=== PATIENT | female | born 1960 | race Caucasian/White ===

== ENCOUNTER 2018-04-18 14:46 | Emergency (ER) | payer BC ==
--- NOTE | 2018-04-18 16:13 | UC ---
Knee Pain HPI - HPI Summary HPI Summary: Patient states that she sees Dr. Rico for steroid injections of her right knee. She states that 5 days ago her son-in-law's dog ran into her right knee. She had instant pain. She presents today for ongoing pain and some mild swelling. Earlier today she felt like in the went "backwards" she was standing in her kitchen. - History of Current Complaint Stated Complaint: RIGHT KNEE Time Seen by Provider: 04/18/18 16:06 Hx Obtained From: Patient Onset/Duration: Sudden Onset Character: Aching Aggravating Factor(s): Movement Alleviating Factor(s): Rest Associated Signs And Symptoms: Positive: Swelling. Negative: Numbness, Tingling Able to Bear Weight: Yes - Risk Factors Septic Arthritis Risk Factor: Negative - Allergies/Home Medications Allergies/Adverse Reactions: Allergies Allergy/AdvReac Type Severity Reaction Status Date / Time amoxicillin [From Augmentin] Allergy Intermediate Rash Verified 04/18/18 16:26 clavulanic acid Allergy Intermediate Rash Verified 04/18/18 16:26 [From Augmentin] Penicillins Allergy Intermediate Rash Verified 04/18/18 16:26 clindamycin AdvReac shaking Verified 04/18/18 16:26 meloxicam AdvReac Itching Verified 04/18/18 16:26 metronidazole [From Flagyl] AdvReac GI Verified 04/18/18 16:26 oxycodone AdvReac severe Verified 04/18/18 16:26 sweating Sulfa (Sulfonamide AdvReac Diarrhea Verified 04/18/18 16:26 Antibiotics) Home Medications: Home Medications Fenofibrate,Micronized [Fenofibrate] 134 mg PO DAILY 04/18/18 [History Confirmed 04/18/18] PMH/Surg Hx/FS Hx/Imm Hx - Additional Past Medical History Additional PMH: Fibromyalgia Endocrine History: Dyslipidemia Cardiovascular History: Hypertension - Surgical History Surgical History: Yes Surgery Procedure, Year, and Place: [facility]-2012. RIGHT THUMB ARTHROPLASTY - Family History Known Family History: Positive: None - Social History Occupation: Works From/At Home - cares for grandchildren Lives: With Family Alcohol Use: Rare Substance Use Type: None Smoking Status (MU): Heavy Every Day Tobacco Smoker Type: Cigarettes Amount Used/How Often: 1/2 PPD Length of Time of Smoking/Using Tobacco: 15 YRS Have You Smoked in the Last Year: Yes - Immunization History Vaccination Up to Date: Yes Review of Systems Constitutional: Negative Skin: Negative Eyes: Negative ENT: Negative Respiratory: Negative Cardiovascular: Negative Gastrointestinal: Negative Genitourinary: Negative Motor: Negative Neurovascular: Negative Musculoskeletal: Other: - R knee pain/swelling Neurological: Negative Psychological: Negative Is Patient Immunocompromised?: No All Other Systems Reviewed And Are Negative: Yes Physical Exam Triage Information Reviewed: Yes Appearance: Well-Appearing Vital Signs Reviewed: Yes Eyes: Positive: Conjunctiva Clear ENT: Positive: Normal ENT inspection Neck: Positive: Supple, Nontender, No Lymphadenopathy Respiratory: Positive: Lungs clear, Normal breath sounds Cardiovascular: Positive: RRR, No Murmur Abdomen Description: Positive: Nontender, No Organomegaly, Soft Bowel Sounds: Positive: Present Musculoskeletal: Positive: Other: - Right lower extremity exam= hip ankle and foot are atraumatic. Right knee when compared to the left is slightly swollen. There is some mild tenderness to palpation along the medial knee. No stress with lateral tension on the patella. No gross laxity on valgus varus anterior posterior stressing. The extremity has gross sensorivascular motor function. Neurological: Positive: Alert Psychological: Positive: Age Appropriate Behavior Skin Exam: Normal Diagnostics - Radiology No standard instances Xray Interpretation: No Acute Changes Radiology Interpretation Completed By: Radiologist Knee Pain Course/Dx - Course Course Of Treatment: no joint laxity. no concern for infection. no fx on xray. will desmond, crutch and refer to her orthopedist. - Differential Dx/Diagnosis Provider Diagnoses: Acute R knee pain Discharge - Sign-Out/Discharge Documenting (check all that apply): Discharge/Admit/Transfer - Discharge Plan Condition: Stable Disposition: HOME Patient Education Materials: Knee Pain (ED), Swollen Knee Joint (ED) Referrals: Norman Noriega DO [Primary Care Provider] - If Needed Ulises Rico MD [Medical Doctor] - As Soon As Possible Additional Instructions: USE DESMOND DURING DAY BUT REMOVE AT BEDTIME. USE CRUTHCES UNTIL CLEARED. - Billing Disposition and Condition Condition: STABLE Disposition: Home
[2018-04-18 16:22] VITALS: BP 123/83
--- NOTE | 2018-04-18 16:42 | RAD ---
HISTORY: pain post injury to anterior knee COMPARISONS: None VIEWS: 4, Frontal, lateral, axial, and oblique views of the right knee FINDINGS: BONE DENSITY: Normal. BONES: There is no displaced fracture. JOINTS: There is mild medial compartment and lateral compartment joint space narrowing. There is a small suprapatellar joint effusion. There is no lipohemarthrosis. ALIGNMENT: There is no dislocation. SOFT TISSUES: Unremarkable. OTHER FINDINGS: None. IMPRESSION: SMALL EFFUSION. NO ACUTE OSSEOUS INJURY. IF SYMPTOMS PERSIST, RECOMMEND REPEAT IMAGING.
== END 2018-04-18 16:58 | disposition home or self-care (01) ==
LOC: UCCORT 14:46
DX: M25.561 Pain in right knee (principal); Z88.1 Allergy status to other antibiotic agents; Z88.5 Allergy status to narcotic agent; Z88.0 Allergy status to penicillin; Z88.2 Allergy status to sulfonamides; Z88.8 Allergy status to other drugs, medicaments and biological substances
CPT/HCPCS: 99212; G0463

== ENCOUNTER 2018-05-11 07:31 | Day surgery (SDC) | payer BC ==
--- NOTE | 2018-05-08 20:43 | HP ---
CC: PCP HISTORY AND PHYSICAL: DATE OF ADMISSION: HISTORY OF PRESENT ILLNESS: Hali is a 57-year-old female who presents to the clinic for right knee pain. She is referred to us by Dr. Garcia. She has had right knee pain for couple of years due to a meniscus injury, received multiple injections by Dr. Rico and has had 6 to 7 injections, which helped decrease the pain, but did not take it away. She has catching and sharp shooting pain. She had not done any formal physical therapy and we sent her to therapy to see if she is going to respond, although I did tell her there is a risk that she would not. She states that the pain is severe, about a 6/10. She denies numbness or tingling. No fevers or chills. She does report catching and occasional locking. No calf pain. PAST MEDICAL HISTORY: Significant for hypertension, high cholesterol, fibromyalgia, allergies, DJD of the back. PAST SURGICAL HISTORY: Significant for lateral epicondyle surgery on the left side, left thumb and right thumb surgery, D and C. MEDICATIONS: Include: 1. Cymbalta. 2. Fenofibrate. 3. Losartan. 4. Pravastatin. 5. Vitamin D. 6. Loratadine. 7. Ibuprofen. ALLERGIES: To FLAGYL, MELOXICAM, SULFA, CLINDAMYCIN, IODINE, PERCOCET, PENICILLIN. FAMILY HISTORY: Significant for heart disease and high blood pressure. No history of DVT or issues with anesthesia. SOCIAL HISTORY: She lives with her spouse. She works, but is not currently working now because of her pain. She uses tobacco, has been smoking for less than 10 years. She drinks alcohol rarely. She exercises occasionally. She is right- hand dominant. REVIEW OF SYSTEMS: A 14-point review of systems reviewed with the patient, significant only for the above complaint, otherwise remainder of the systems is negative. PHYSICAL EXAMINATION GENERAL: She is in no acute distress. She is well developed and well nourished. She is alert and oriented x3. She has pleasant mood and normal affect. Good balance and coordination of the extremities. HEENT: EOMI. CHEST: Clear to auscultation. HEART: Regular rate and rhythm. ABDOMEN: Soft, nontender. EXTREMITIES: Examination of the right knee demonstrates skin is intact. There is erythema or warmth. She has 0 to 125 degrees range of motion with positive Michelle's sign, [id number] effusion, stable to varus-valgus stress, stable Denice. Calf is soft and nontender. Sensate to light touch grossly distally and brisk cap refill. 5/5 strength, dorsiflexion and plantarflexion. ASSESSMENT AND PLAN: She has MRI confirming a medial meniscus tear. She has had this for several years now. As she has continued catching and locking, she has failed injections, physical therapy, and anti-inflammatories, at this point I would recommend right knee arthroscopy with meniscus surgery. Risks and benefits were discussed at length and included, but not limited to, bleeding; infection; damage to nerves, vessels and surrounding structures; wound nonhealing; persistent pain; need for further surgery; scarring; stiffness; incomplete relief of symptoms; risks of anesthesia as well as risk of DVT. I will see the patient back 10 to 14 days postop. We will give her hydrocodone for pain medication postoperatively as she is allergic to PERCOCET. I will see the patient back in 10 to 14 days. [id number]/[facility] #: [id number] EMY
[~2018-05-11 07:31] MED LIST: Buffered Lidocaine 0.9% SYRIN* 5 ML/SYR SYRINGE INTRADERM ONE; Sodium Citrate/Citric Acid* 15 ML UDC PO ONE
[2018-05-11] MEDS ORDERED: ceFAZolin 2 GM PREMIX (*) 2 GM/50 ML BAG IVPB ONE (07:54)
[2018-05-11] MEDS ORDERED: Sodium Citrate/Citric Acid* 15 ML UDC ONE (07:54)
[2018-05-11] MEDS ORDERED: Lidocaine 1% MPF wEPI 200,000* 30 ML SDV ONE (09:20)
[2018-05-11] MEDS ORDERED: Bupivacaine 0.25% W/EPI* 10 ML SDV ONE ×2 (09:31→10:01)
[2018-05-11] MEDS ORDERED: Propofol* 10 MG/ML 20 ML BTL IV PUSH ONE (09:43)
[2018-05-11] MEDS ORDERED: fentaNYL* 50 MCG/ML 2 ML VIAL (100 MCG VIAL) ONE ×2 (09:43→10:50)
[2018-05-11] MEDS ORDERED: Lidocaine 2% PF * 5 ML VIAL ONE (09:43)
[2018-05-11] MEDS ORDERED: Bupivacaine 0.5% PF 10 ML VIAL INJ ONE (10:03)
[2018-05-11] MEDS ORDERED: fentaNYL* 50 MCG/ML 2 ML VIAL (100 MCG VIAL) IV PRN (10:48)
[2018-05-11] MEDS ORDERED: Ondansetron INJ* 2 MG/ML VIAL IV PRN (10:48)
[2018-05-11] MEDS ORDERED: Naloxone* 0.4 MG/ML 1 ML VIAL IV PRN (10:48)
[2018-05-11 12:02] VITALS: BP 126/84
--- NOTE | 2018-05-12 12:24 | OP ---
CC: PCP, Norman Noriega MD * DATE OF OPERATION: 05/11/18 - SDS DATE OF : 62 SURGEON: Catalino Garcia MD SOIL CONSERVATION AIDE: None available. ANESTHESIOLOGIST: Bry Guerrier DO ANESTHESIA: General. PRE-OP DIAGNOSIS: Right knee medial meniscus tear. POST-OP DIAGNOSES: Right knee medial meniscus tear as well as radial split tear of the lateral meniscus, chondrosis of the patellofemoral joint. OPERATIVE PROCEDURE: Right knee arthroscopy with partial medial and partial lateral meniscectomy with chondroplasty of the medial femoral condyle as well as the patellofemoral joint. INDICATIONS: Hali Barraza is a 57-year-old female who has had several years of knee pain, catching, mechanical symptoms. She has had several injections and failed physical therapy. After extensive discussion of risks and benefits to surgical versus nonoperative treatment, she has elected to proceed with surgical treatment. Risks and benefits include, but are not limited to, bleeding; infection; damage to nerves, vessels, surrounding structures; wound nonhealing; persistent pain; scarring; stiffness; incomplete relief of symptoms ; risk of anesthesia; need for further surgery; risk of DVT. She has elected to proceed. COMPLICATIONS: None. ESTIMATED BLOOD LOSS: Minimal. DESCRIPTION OF PROCEDURE: The patient was greeted in the preoperative area by the attending surgeon. The correct extremity was marked and the consent was confirmed. The patient was brought back to the operating suite where she was placed in the supine position on the operating table. She then underwent general anesthesia, LMA intubation after which an unsterile tourniquet was placed high in the proximal thigh. The lateral post was positioned. The right leg was then prepped and draped in the usual sterile fashion beginning with chlorhexidine soap, scrub, and alcohol wipe and a final prep with ChloraPrep. After appropriate surgical pause indicating side, site, procedure, and administration of antibiotics, the anterolateral portal was made sharply with 11 blade. The scope was introduced into the joint. Joint was examined. There was a smaller area of grade 2 changes with unstable flaps in the patellofemoral joint, remainder was grade 0 changes. Medial and lateral gutters were intact without loose debris. The ACL and PCL were intact. There was abundant fat pad. The medial compartment was examined. There were areas of grade 2 changes. There was evidence of medial meniscus tear; it was more of a longitudinal type of tear. This was debrided back using barrett and biters to a stable layer. At this point, the knee was then placed in a [id number] position and lateral meniscus was examined. There were grade 1 to 2 changes to the lateral femoral condyle and lateral compartment, but there was a radial split tear of the meniscus. The biters and barrett were used to debride this back to a stable layer. All fluid and debris were then thoroughly lavaged and removed from the knee. The wounds were copiously irrigated with sterile saline. The portals were closed with 3-0 nylon in interrupted fashion. The knee was intra-articularly injected with 0.25% Marcaine plain. Sterile dressings applied. A Cryo/Cuff was applied. She was awoken from anesthesia and transferred to the PACU in stable condition. POSTOPERATIVE PLAN: She will be weightbearing as tolerated. She is discharged on pain medication. DVT prophylaxis was considered but deferred due to no previous personal or family history. I will see the patient back in 10 to 14 days. [id number]/[facility] #: [id number] [facility]OS[facility]ITALDave
== END 2018-05-11 12:28 | disposition home or self-care (01) ==
LOC: OR 07:31
PROVIDERS: ATTEND Orthopaedic Surgery
DX: S83.241A Other tear of medial meniscus, current injury, right knee, initial encounter (principal); S83.281A Other tear of lateral meniscus, current injury, right knee, initial encounter; X58.XXXA Exposure to other specified factors, initial encounter; Y92.9 Unspecified place or not applicable; I10 Essential (primary) hypertension; E78.00 Pure hypercholesterolemia, unspecified; M79.7 Fibromyalgia
CPT/HCPCS: A9270-GY; J0690; J2001; J2704; J3010

== ENCOUNTER 2019-12-05 07:36 | Emergency (ER) | payer BC ==
--- OUTSIDE RECORDS SUMMARY | 2019-12-05 07:47 | XMS REPORT ---
:1960 Author Name sound, ultra Care Team Providers Name Role Phone sound, ultra Unavailable Unavailable PROBLEMS Type Condition ICD9-CM [id number] Onset Condition SNOMED Code Code Code Dates Status Problem Unspecified ovarian N83.20 Active 45735944 cysts Problem Postmenopausal N95.0 Active 87880058 bleeding Problem Dyspareunia N94.1 Active 67463308 Problem Family history of Z80.3 Active 114584000 malignant neoplasm of breast Problem Unspecified lump in N63 Active 02564564 breast Problem Leiomyoma of D25.9 Active 12302871 uterus, unspecified Problem Mastodynia N64.4 Active 89232234 Problem Noninflammatory N90.9 Active 831363352 disorder of vulva and perineum, unspecified Problem Breast Mass 611.72 Active 98407024 Problem 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 Problem Family history of Z80.51 Active 905160601 malignant neoplasm of kidney Problem Diffuse cystic 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 Active 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 Problem Unspecified lump in N63.21 Active [id number] the left breast, upper outer quadrant Problem Unspecified lump in N63.12 Active 600364528 the right breast, upper inner quadrant Problem Unspecified urinary R32 Active 222628794 incontinence ALLERGIES No Information ENCOUNTERS Encounter Location Date Diagnosis [facility] Sep, OBGYN [place] [id number] [facility] Sep, OBG[place] [id number] [facility] Jan, OBGYN [facility], [place] [id number] [facility] 103 Oct, Anogenital (venereal ) OBGYN [facility], warts A63.0 [place] [id number] [facility] 103 Oct, Noninflammatory disorder OBGYN [facility], of vulva and perineum, [place] [id number] unspecified N90.9 [facility] Oct, OBGYN [facility], [place] [id number] [facility] Oct, OBGYN [place] [id number] [facility] 103 Sep, Encounter for OBGYN [facility], gynecological examination [place] [id number] (general) (routine) with abnormal findings Z01.411 ; Encounter for screening mammogram for malignant neoplasm of breast Z12.31 ; Encounter for screening for malignant neoplasm of colon Z12.11 ; Leiomyoma of uterus, unspecified D25.9 and Noninflammatory disorder of vulva and perineum, unspecified N90.9 [facility] Sep, Leiomyoma of uterus, OBGYN [facility], unspecified D25.9 and [place] [id number] Family history of malignant neoplasm of ovary Z80.41 [facility] Sep, OBG[place] [id number] [facility] Sep, OBG[place] [id number] [facility] 103 Sep, Encounter for O[facility], gynecological examination [place] [id number] (general) (routine) without abnormal findings Z01.419 ; Encounter for screening for malignant neoplasm of colon Z12.11 ; Encounter for screening mammogram for malignant neoplasm of breast Z12.31 ; Family history of malignant neoplasm of breast Z80.3 ; Leiomyoma of uterus, unspecified D25.9 ; Tobacco abuse counseling Z71.6 ; Unspecified urinary incontinence R32 ; Unspecified lump in the right breast, upper inner quadrant N63.12 and Unspecified lump in the left breast, upper outer quadrant N63.[address] [facility] Aug, [place] [id number] [facility] Sep, [place] [id number] [facility] Sep, [place] [id number] [facility] Sep, Encounter for [facility] gynecological examination [place] [id number] (general) (routine) with abnormal findings Z01.411 ; Family history of malignant neoplasm of ovary Z80.41 ; Encounter for screening mammogram for malignant neoplasm of breast Z12.31 ; Leiomyoma of uterus, unspecified D25.9 ; Family history of malignant neoplasm of breast Z80.3 ; Encounter for screening for malignant neoplasm of colon Z12.11 ; Unspecified lump in the left breast, unspecified quadrant N63.20 and Postmenopausal bleeding N95.[address] [facility] Sep, Family history of [facility], malignant neoplasm [place] [id number] ovary Z80.41 and Leiomyoma of uterus, unspecified D25.[address] [facility] Jun, Family history of [facility], malignant [place]oplasm [place] [id number] ovary Z80.41 and Leiomyoma of uterus, unspecified D25.9 [facility] Jun, Family history of [facility], malignant neoplasm [place] [id number] ovary Z80.41 and Leiomyoma of uterus, unspecified D25.[address] [facility] Apr, [place] [id number] [facility] March, OBG[place] [id number] [facility] March, Family history of OBGYN [facility], malignant neoplasm [place] [id number] ovary Z80.41 ; Family history of malignant neoplasm of breast Z80.3 ; Mastodynia N64.4 ; Diffuse cystic mastopathy of left breast N60.12 and Leiomyoma of uterus, unspecified D25.9 [facility] March, [facility], malignant neoplasm of [place] [id number] ovary Z80.41 ; Unspecified ovarian cysts N83.20 and Leiomyoma of uterus, unspecified D25.[address] [facility] Feb, [facility], malignant neoplasm of [place] [id number] ovary Z80.41 ; Family history of malignant neoplasm of breast Z80.3 and Unspecified lump in breast N63 [facility] Jan, [facility], N95.0 ; Dyspareunia N94.1 [place] [id number] ; Family history of malignant neoplasm of ovary Z80.41 ; Family history of malignant neoplasm of breast Z80.3 ; Unspecified lump in breast N63 and Family history of malignant neoplasm of kidney Z80.51 [facility] Dec, [place] [id number] [facility] Oct, Postmenopausal bleeding [facility], N95.0 ; Dyspareunia N94.1 [place] [id number] ; Family history of malignant neoplasm of ovary Z80.41 ; Family history of malignant neoplasm of breast Z80.3 ; Unspecified lump in breast N63 and Family history of malignant neoplasm of kidney Z80.51 [facility] Sep, [place] [id number] [facility] Sep, Dysuria R30.0 [place] [id number] [facility] Aug, Encounter for [facility], gynecological examination [place] [id number] (general) (routine) with abnormal findings Z01.411 ; Encounter for screening mammogram for malignant neoplasm of breast Z12.31 ; Encounter for screening for malignant neoplasm of colon Z12.11 ; Family history of malignant neoplasm of ovary Z80.41 ; Family history of malignant neoplasm of breast Z80.3 and Unspecified lump in breast N63 [facility] Aug, Family history of [facility], malignant neoplasm of [place] [id number] ovary Z80.41 [place] [facility] Jul, Urinary tract infection, [facility], site not specified N39.0 ; [place] [id number] Breast Mass 611.72 ; Family history of malignant neoplasm of ovary Z80.41 and Family history of malignant neoplasm of breast Z80.3 [facility] 103 Jul, Postmenopausal bleeding [facility], N95.0 ; Dyspareunia N94.1 [place] [id number] ; Breast Mass 611.72 ; Family history of malignant neoplasm of ovary Z80.41 ; Family history of malignant neoplasm of breast Z80.3 ; Family history of malignant neoplasm of kidney Z80.51 and Biliuria R82.2 [place] [address] Jun, [facility] [place] [id number] [facility] Jun, [facility], N95.0 [place] [id number] [facility] [facility] May, [place] [id number] [facility] May, [facility], N95.0 [place] [id number] [place] [facility] May, Postmenopausal bleeding [facility]BG[facility], N95.0 and Dyspareunia [place] [id number] N94.[address] [facility] May, OBG[facility], [place] [id number] [facility] Apr, Encounter for screening OBG[facility], mammogram for malignant [place] [id number] neoplasm of breast Z12.[address] Apr, [address]yspareunia N94.[address] [place], Postmenopausal bleeding [place] [id number] N95.0 [place] [facility] Feb, Family history of OBG[facility], malignant neoplasm of [place] [id number] ovary Z80.41 ; Family history of malignant neoplasm of breast Z80.3 and Encounter for screening mammogram for malignant neoplasm of breast Z12.31 [facility] 103 Feb, Family history of OBGYN [facility], malignant neoplasm [place] [id number] ovary Z80.[address] [facility] Aug, OBG[place] [id number] [facility] Aug, Family history of OBG[facility], malignant neoplasm of [place] [id number] ovary Z80.41 and Unspecified ovarian cysts N83.[address] [facility] Aug, Unspecified ovarian cysts [facility], N83.20 [place] [id number] [facility] Jul, OBG[place], [place] [id number] [facility] May, Osteopenia 733.90 OBGYN [place], [place] [id number] [facility] May, ROUTINE FUNDRAISING DIRECTOR EXAMINATION O[facility], V72.31 ; PAP SMEAR W/O FUNDRAISING DIRECTOR [place] [id number] EXAM V76.2 ; SCREEN MALIG NEOP-COLON V76.51 and SCREEN MAMMOGRAM NEC V76.12 [facility] 103 Feb, Ovarian cyst NOS 620.2 OBG[place], [place] [id number] [facility] [facility] Feb, Postmenopausal bleeding OBGYN [facility], 627.1 [place] [id number] [facility] [facility] Jan, Postmenopausal bleeding OBGYN [facility], 627.1 [place] [id number] [place] [facility] Jan, OBG[place], [place] [id number] [place] [address] Dec, [place] [id number] [facility] Dec, ENDOMETRIAL HYPERPLASIA, OBGYN [facility], UNSPEC. 621.30 [place] [id number] [facility] [facility] 103 Dec, ENDOMETRIAL HYPERPLASIA, OBGYN [facility], UNSPEC. 621.30 [place] [id number] [facility] Nov, OBG[place] [id number] [place] [facility] Nov, Benign endometrial [facility], hyperplasia 621.34 [place] [id number] [place] [facility] 103 Nov, ENDOMETRIAL HYPERPLASIA, OBGYN [facility], UNSPEC. 621.30 [place] [id number] [place] [facility] Nov, Postmenopausal bleeding OBG[facility], 627.1 [place] [id number] [place] [facility] 103 Nov, Ovarian cyst NOS 620.2 and OBGYN [facility], ENDOMETRIAL HYPERPLASIA, [place] [id number] UNSPEC. 621.30 [place] [facility] 15 Ino, 2015 FM HX OVARY MALIGNANCY [facility], V16.41 and ABN FINDINGS- [place] [id number] ORGANS 793.5 [facility] 103 Oct, FM HX OVARY MALIGNANCY [facility], V16.41 and FAMILY [place] [id number] HX-BREAST MALIG V16.3 [facility] Oct, FM HX OVARY MALIGNANCY [facility], V16.41 [place] [id number] [facility] May, VULVAR LESION 624.9 [place] [id number] [facility] 103 May, VULVAR LESION 624.9 OBG[place], [place] [id number] [facility] 103 Apr, ROUTINE FUNDRAISING DIRECTOR EXAMINATION [facility], V72.31 ; PAP SMEAR W/O FUNDRAISING DIRECTOR [place] [id number] EXAM V76.2 ; SCREEN MALIG NEOP-COLON V76.51 ; SCREEN MAMMOGRAM NEC V76.12 ; FAMILY HX-BREAST MALIG V16.3 ; FM HX OVARY MALIGNANCY V16.41 ; Menopausal symptoms 627.2 and VULVAR LESION 624.9 [facility] Apr, FM HX OVARY MALIGNANCY [facility], V16.41 [place] [id number] [facility] 103 Sep, FAMILY HX-BREAST MALIG [facility], V16.3 ; FM HX OVARY [place] [id number] MALIGNANCY V16.41 and Menopausal symptoms 627.2 [facility] Aug, OBG[place], [place] [id number] [facility] 103 Aug, FAMILY HX-BREAST MALIG [facility], V16.3 ; FM HX OVARY [place] [id number] MALIGNANCY V16.41 and Menopausal symptoms 627.2 [facility] [facility] Jul, OBGYN [place], [place] [id number] [place] [facility] 103 Jul, Ovarian cyst NOS 620.2 ; OBGYN [facility], Postmenopausal bleeding [place] [id number] 627.1 ; FAMILY HX-BREAST MALIG V16.3 ; FM HX OVARY MALIGNANCY V16.41 ; FAMILY HX-KIDNEY MALIG V16.51 and HEMATURIA NOS 599.70 [facility] [facility] Jul, Ovarian cyst NOS 620.2 OBG[place], [place] [id number] [facility] [facility] Jun, OBGYN [place], [place] [id number] [facility] [facility] 103 Jun, Postmenopausal bleeding OBG[facility], 627.1 ; Endometrial polyp [place] [id number] 621.0 ; Ovarian cyst NOS 620.2 ; FAMILY HX-BREAST MALIG V16.3 ; FM HX OVARY MALIGNANCY V16.41 ; FAMILY HX-KIDNEY MALIG V16.51 and HEMATURIA NOS 599.70 [facility] [address] Jun, Medical [place] [id number] [facility] [facility] Jun, OBG[place], [place] [id number] [facility] [facility] 103 Jun, Postmenopausal bleeding OBGYN [facility], 627.1 and Endometrial [place] [id number] polyp 621.0 [facility] [facility] 103 May, OBGYN [place], [place] [id number] [facility] 103 May, OBG[place], [place] [id number] [facility] [facility] 103 May, Postmenopausal bleeding OBGYN [facility], 627.1 ; Endometrial polyp [place] [id number] 621.0 ; Ovarian cyst NOS 620.2 ; FAMILY HX-BREAST MALIG V16.3 ; FM HX OVARY MALIGNANCY V16.41 and FAMILY HX-KIDNEY MALIG V16.51 [facility] 103 May, OBGYN [facility], [place] [id number] [facility] [facility] 103 May, Postmenopausal bleeding OBGYN [facility], 627.1 and Endometrial [place] [id number] polyp 621.0 [facility] [facility] 103 May, Postmenopausal bleeding OBGYN [facility], 627.1 [place] [id number] [place] [facility] May, Postmenopausal bleeding OBG[facility], 627.1 ; Endometrial polyp [place] [id number] 621.0 and Ovarian cyst NOS 620.[address] [facility] 103 May, Postcoital bleeding 626.7 [facility]BG[facility], ; Postmenopausal bleeding [place] [id number] 627.1 ; Condyloma NOS 078.10 and Ovarian cyst NOS 620.[address] [facility] May, Postcoital bleeding 626.7 OBGYN [facility], ; ABN FINDINGS- ORGANS [place] [id number] 793.5 and Ovarian cyst NOS 620.[address] [facility] Apr, Postcoital bleeding 626.7 [facility], and Dyspareunia 625.0 [place] [id number] IMMUNIZATIONS No Known Immunizations SOCIAL HISTORY Never Assessed REASON FOR REFERRAL FUNCTIONAL STATUS PLAN OF CARE VITAL SIGNS MEDICATIONS Unknown Medications PROCEDURES Procedure Date Ordered Result Body Site TRANSVAGINAL US, NON-OB Sep 23, 2019 RESULTS Name Result Date Reference Range Ultrasound : Pelvis REASON FOR VISIT Pelvic US wt annual Insurance Providers [facility] Member Patient Patient Patient Patient Patient Subscriber Subscriber Subscriber Group Insurance Plan Plan Plan Plan ID Relationship Address Phone Name Date of ID Name Date of No Type Insurance Insurance Insurance Coverage to Subscriber Address Phone Name Dates Yohana Rhoades [phone] Yohana Lal [id number] Blue [id number] [address] 0 Cross/[place] Cross/Blue Shield [id number] Shield Yohana [phone] Yohana Lal [id number] Blue [id number] [address] 0 Cross[place] Cross/Blue Shield [id number] Shield MEDICAL (GENERAL) HISTORY Type Description Date Medical History HTN Medical History Hyperlipidemia Medical History fibromyalgia Medical History IBS Medical History hx kidney stones Medical History depression Medical History Postcoital bleeding Medical History Dyspareunia Medical History Postmenopausal bleeding Medical History Ovarian cyst NOS Medical History BRCA/Colaris negative Surgical History 06-19-16 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
--- OUTSIDE RECORDS SUMMARY | 2019-12-05 07:47 | XMS REPORT ---
:1960 Author Organization [facility] Address [address] [place] [address] Care Team Providers Name Role Phone Ramesh Westfall Unavailable Unavailable PROBLEMS Type Condition ICD9-CM SOK56-LL Onset Condition SNOMED Code Code Code Dates Status Problem Unspecified ovarian N83.20 Active 00657600 cysts Problem Postmenopausal N95.0 Active 43845718 bleeding Problem Dyspareunia N94.1 Active 99947931 Problem Family history of Z80.3 Active 038232745 malignant neoplasm of breast Problem Unspecified lump in N63 Active 52918818 breast Problem Leiomyoma of D25.9 Active 25164284 uterus, unspecified Problem Mastodynia N64.4 Active 75224640 Problem Noninflammatory N90.9 Active 547103052 disorder of vulva and perineum, unspecified Problem Breast Mass 611.72 Active 94777501 Problem 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 Problem Family history of Z80.51 Active 171819240 malignant neoplasm of kidney Problem 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 Problem Unspecified lump in N63.21 Active 829701138238505 the left breast, upper outer quadrant Problem Unspecified lump in N63.12 Active 718491732 the right breast, upper inner quadrant Problem Unspecified urinary R32 Active 111958605 incontinence ALLERGIES No Information ENCOUNTERS Encounter Location Date Diagnosis [facility] 103 Sep, [place], [place] [id number] [facility] 103 Sep, [place] [id number] [facility] 103 Jan, [place] [id number] [facility] 103 Oct, Anogenital (venereal ) OBN [facility], warts A63.0 [place] [id number] [facility] 103 Oct, Noninflammatory disorder OBGYN [facility], of vulva and perineum, [place] [address] unspecified N90.9 [facility] 103 Oct, [place] [id number] [facility] 103 Oct, [place] [id number] [facility] 103 Sep, [facility]ological examination [place] [id number] (general) (routine) with abnormal findings Z01.411 ; Encounter for screening mammogram for malignant neoplasm of breast Z12.31 ; Encounter for screening for malignant neoplasm of colon Z12.11 ; Leiomyoma of uterus, unspecified D25.9 and Noninflammatory disorder of vulva and perineum, unspecified N90.9 [facility] 103 Sep, Leiomyoma of uterus, OBGYN [facility], unspecified D25.9 and [place] [id number] Family history of malignant neoplasm of ovary Z80.41 [facility] 103 Sep, [place] [id number] [facility] 103 Sep, [place] [id number] [facility] 103 Sep, [facility], gynecological examination [place] [id number] (general) (routine) without abnormal findings Z01.419 ; [...] the left breast, upper outer quadrant N63.21 [facility] Aug, [place] [id number] [facility] 103 Sep, [place] [id number] [facility] 103 Sep, [place] [id number] [facility] 103 Sep, Encounter for [facility], gynecological examination [place] [id number] (general) (routine) with abnormal findings Z01.411 ; [...] unspecified quadrant N63.20 and Postmenopausal bleeding N95.0 [facility] Sep, Family history of [facility], malignant neoplasm [place] [id number] ovary Z80.41 and Leiomyoma of uterus, unspecified D25.9 [facility] 103 Jun, Family history of [facility], malignant neoplasm [place] [id number] ovary Z80.41 and Leiomyoma of uterus, unspecified D25.9 [facility] 103 Jun, Family history of [facility], malignant neoplasm of [place] [id number] ovary Z80.41 and Leiomyoma of uterus, unspecified D25.9 [facility] Apr, [place] [id number] [facility] 103 March, [place] [id number] [facility] 103 March, Family history of [facility], malignant neoplasm of [place] [id number] ovary Z80.41 ; Family history of malignant neoplasm of breast Z80.3 ; Mastodynia N64.4 ; Diffuse cystic mastopathy of left breast N60.12 and Leiomyoma of uterus, unspecified D25.9 [facility] 103 March, Family history of [facility], malignant neoplasm of [place] [id number] ovary Z80.41 ; Unspecified ovarian cysts N83.20 and Leiomyoma of uterus, unspecified D25.9 [facility] 103 Feb, [facility], malignant [place]oplasm [place] [id number] ovary Z80.41 ; Family history of malignant neoplasm of breast Z80.3 and Unspecified lump in breast N63 [facility] 103 Jan, [facility], N95.0 ; Dyspareunia N94.1 [place] [id number] ; Family history of malignant neoplasm of ovary Z80.41 ; Family history of malignant neoplasm of breast Z80.3 ; Unspecified lump in breast N63 and Family history of malignant neoplasm of kidney Z80.51 [facility] 103 Dec, [place] [id number] [facility] 103 Oct, Postmenopausal bleeding [facility], N95.0 ; Dyspareunia N94.1 [place] [id number] ; Family history of malignant neoplasm of ovary Z80.41 ; Family history of malignant neoplasm of breast Z80.3 ; Unspecified lump in breast N63 and Family history of malignant neoplasm of kidney Z80.51 [facility] 103 Sep, [place] [id number] [facility] Sep, Dysuria R30.0 [place], [place] [id number] [facility] 103 Aug, Encounter for [facility], gynecological examination [place] [id number] (general) (routine) with abnormal findings Z01.411 ; Encounter for screening mammogram for malignant neoplasm of breast Z12.31 ; Encounter for screening for malignant neoplasm of colon Z12.11 ; Family history of malignant neoplasm of ovary Z80.41 ; Family history of malignant neoplasm of breast Z80.3 and Unspecified lump in breast N63 [facility] Aug, Family history of [facility], malignant neoplasm [place] [id number] ovary Z80.41 [facility] 103 Jul, Urinary tract infection, [facility], site not specified N39.0 ; [place] [id number] Breast Mass 611.72 ; Family history of malignant neoplasm of ovary Z80.41 and Family history of malignant neoplasm of breast Z80.3 [facility] 103 Jul, Postmenopausal bleeding [facility], N95.0 ; Dyspareunia N94.1 [place] [id number] ; Breast Mass 611.72 ; Family history of malignant neoplasm of ovary Z80.41 ; Family history of malignant neoplasm of breast Z80.3 ; Family history of malignant neoplasm of kidney Z80.51 and Biliuria R82.2 [facility] [address] Jun, Medical [place], [place] [id number] [facility] 103 Jun, Postmenopausal bleeding [facility], N95.0 [place] [id number] [facility] 103 May, [place] [id number] [facility] 103 May, Postmenopausal bleeding [facility], N95.0 [place] [id number] [facility] 103 May, Postmenopausal bleeding OBGYN [facility], N95.0 and Dyspareunia [place] [id number] N94.1 [facility] 103 May, OBGYN [facility], [place] [id number] [facility] 103 Apr, Encounter for screening OBGYN [facility], mammogram for malignant [place] [id number] neoplasm of breast Z12.31 [place] [address] [facility] Apr, Dyspareunia N94.[address] [place], Postmenopausal bleeding [place] [id number] N95.0 [facility] 103 Feb, Family history of OBGYN [facility], malignant neoplasm [place] [id number] ovary Z80.41 ; Family history of malignant neoplasm of breast Z80.3 and Encounter for screening mammogram for malignant neoplasm of breast Z12.31 [facility] 103 Feb, Family history of OBGYN [facility], malignant neoplasm of [place] [id number] ovary Z80.41 [facility] 103 Aug, [place] [id number] [facility] 103 Aug, Family history of OBGYN [facility], malignant neoplasm of [place] [id number] ovary Z80.41 and Unspecified ovarian cysts N83.20 [facility] 103 Aug, Unspecified ovarian cysts OBGYN [facility], N83.20 [place] [id number] [facility] Jul, [place] [id number] [facility] 103 May, Osteopenia 733.90 [place] [id number] [facility] 103 May, ROUTINE RADIO REPAIRMAN EXAMINATION OBGYN [facility], V72.31 ; PAP SMEAR W/O RADIO REPAIRMAN [place] [id number] EXAM V76.2 ; SCREEN MALIG NEOP-COLON V76.51 and SCREEN MAMMOGRAM NEC V76.12 [facility] 103 Feb, Ovarian cyst NOS 620.2 [place] [id number] [facility] 103 Feb, Postmenopausal bleeding OBGYN [facility], 627.1 [place] [id number] [facility] 103 Jan, Postmenopausal bleeding OBGYN [facility], 627.1 [place] [id number] [facility] 103 Jan, [place], [place] [id number] [place] [address] Dec, [place] [id number] [facility] 103 Dec, ENDOMETRIAL HYPERPLASIA, OBGYN [facility], UNSPEC. 621.30 [place] [id number] [facility] 103 Dec, ENDOMETRIAL HYPERPLASIA, OBGYN [facility], UNSPEC. 621.30 [place] [id number] [facility] 103 Nov, OBGYN [facility], [place] [id number] [facility] 103 Nov, Benign endometrial OBGYN [facility], hyperplasia 621.34 [place] [id number] [facility] 103 Nov, ENDOMETRIAL HYPERPLASIA, OBGYN [facility], UNSPEC. 621.30 [place] [id number] [facility] 103 Nov, Postmenopausal bleeding OBGYN [facility], 627.1 [place] [id number] [facility] 103 Nov, Ovarian cyst NOS 620.2 and OBGYN [facility], ENDOMETRIAL HYPERPLASIA, [place] [id number] UNSPEC. 621.30 [facility] 103 Nov, FM HX OVARY MALIGNANCY OBGYN [facility], V16.41 and ABN FINDINGS- [place] [id number] ORGANS 793.5 [facility] 103 Oct, FM HX OVARY MALIGNANCY OBGYN [facility], V16.41 and FAMILY [place] [id number] HX-BREAST MALIG V16.3 [facility] 103 Oct, FM HX OVARY MALIGNANCY OBGYN [facility], V16.41 [place] [id number] [facility] 103 May, VULVAR LESION 624.9 [place] [id number] [facility] 103 May, VULVAR LESION 624.9 [place], [place] [id number] [facility] 103 Apr, ROUTINE RADIO REPAIRMAN EXAMINATION OBGYN [facility], V72.31 ; PAP SMEAR W/O RADIO REPAIRMAN [place] [id number] EXAM V76.2 ; SCREEN MALIG NEOP-COLON V76.51 ; SCREEN MAMMOGRAM NEC V76.12 ; FAMILY HX-BREAST MALIG V16.3 ; FM HX OVARY MALIGNANCY V16.41 ; Menopausal symptoms 627.2 and VULVAR LESION 624.9 [facility] 103 Apr, FM HX OVARY MALIGNANCY OBGYN [facility], V16.41 [place] [id number] [facility] 103 Sep, FAMILY HX-BREAST MALIG OBGYN [facility], V16.3 ; FM HX OVARY [place] [id number] MALIGNANCY V16.41 and Menopausal symptoms 627.2 [facility] Aug, [place] [id number] [facility] 103 Aug, FAMILY HX-BREAST MALIG OBGYN [address] [facility], V16.3 ; FM HX OVARY [place] [id number] MALIGNANCY V16.41 and Menopausal symptoms 627.2 [facility] 103 Jul, OBG[place], [place] [id number] [facility] 103 Jul, Ovarian cyst NOS 620.2 ; OBGYN [facility], Postmenopausal bleeding [place] [id number] 627.1 ; FAMILY HX-BREAST MALIG V16.3 ; FM HX OVARY MALIGNANCY V16.41 ; FAMILY HX-KIDNEY MALIG V16.51 and HEMATURIA NOS 599.70 [facility] 103 Jul, Ovarian cyst NOS 620.2 [place] [id number] [facility] 103 Jun, [place] [id number] [facility] 103 Jun, Postmenopausal bleeding OBGYN [facility], 627.1 ; Endometrial polyp [place] [id number] 621.0 ; Ovarian cyst NOS 620.2 ; FAMILY HX-BREAST MALIG V16.3 ; FM HX OVARY MALIGNANCY V16.41 ; FAMILY HX-KIDNEY MALIG V16.51 and HEMATURIA NOS 599.[address] [place] [address], [place], [place] [id number] [facility] 103 Jun, OBG[place] [id number] [facility] 103 Jun, Postmenopausal bleeding OBGYN [facility], 627.1 and Endometrial [place] [id number] polyp 621.0 [facility] 103 May, [place], [place] [id number] [facility] 103 May, OBG[place] [id number] [facility] 103 May, Postmenopausal bleeding OBGYN [facility], 627.1 ; Endometrial polyp [place] [id number] 621.0 ; Ovarian cyst NOS 620.2 ; FAMILY HX-BREAST MALIG V16.3 ; FM HX OVARY MALIGNANCY V16.41 and FAMILY HX-KIDNEY MALIG V16.51 [facility] 103 May, OBGYN [facility], [place] [id number] [facility] 103 May, Postmenopausal bleeding OBGYN [facility], 627.1 and Endometrial [place] [id number] polyp 621.0 [facility] 103 May, Postmenopausal bleeding OBGYN [facility], 627.1 [place] [id number] [facility] 103 May, Postmenopausal bleeding OBGYN [facility], 627.1 ; Endometrial polyp [place] [id number] 621.0 and Ovarian cyst NOS 620.2 [facility] 103 May, Postcoital bleeding 626.7 OBGYN [facility], ; Postmenopausal bleeding [place] [id number] 627.1 ; Condyloma NOS 078.10 and Ovarian cyst NOS 620.2 [facility] 103 May, Postcoital bleeding 626.7 OBGYN [facility], ; ABN FINDINGS- [place]ANS [place] [id number] 793.5 and Ovarian cyst NOS 620.2 [facility] 103 Apr, Postcoital bleeding 626.7 OBGYN [facility], and Dyspareunia 625.0 [place] [id number] IMMUNIZATIONS No Known Immunizations SOCIAL HISTORY Never Assessed REASON FOR REFERRAL FUNCTIONAL STATUS PLAN OF CARE VITAL SIGNS MEDICATIONS Unknown Medications PROCEDURES No Known procedures RESULTS No Results REASON FOR VISIT Bill Insurance Providers [facility] Member Patient Patient Patient Patient Patient Subscriber Subscriber Subscriber Group Insurance Plan Plan Plan Plan ID Relationship Address Phone Name Date of ID Name Date of No Type Insurance Insurance Insurance Coverage to Subscriber Address Phone Name Dates Yohana MICA [place] [phone] Yohana Lal [id number] Blue [id number] 0 Cross/Blue [place] Cross/Blue Shield [id number] Shield Yohana [address] [phone] Yohana Lal [id number] Blue [id number] 89 Blue [place] 0 Cross/Blue [place] Cross/Blue Shield [id number] Shield MEDICAL (GENERAL) HISTORY Type Description Date [...]
--- OUTSIDE RECORDS SUMMARY | 2019-12-05 07:47 | XMS REPORT | Continuity of Care Document ---
:1960 External Reference #:[id number] Author Name Funmi Camejo M.D. Address [address] [place] [address] Care Team Providers Name Role Phone Aime Matos MD - Hand Surgery Care Team Information Customer Development Manager Kendall Mccain MD - General Care Team Information Customer Development Manager [phone] [facility] Ezio Pimentel MD - Emergency Care Team Information Customer Development Manager [phone] Medicine Problems Active Problems Provider Date Kidney stone Funmi Camejo M.D. Onset: 06/09/2018 Enthesopathy of knee Ulises Rico M.D. Onset: 01/23/2016 Old tear of posterior horn of medial meniscus Ulises Rico M.D. Onset: 12/21 Breast signs and symptoms Kyree Smith MD Onset: 12/30/2012 Breast finding Kyree Smith MD Onset: 12/30/2012 Social History Type Date Description Comments Sex Unknown Tobacco Use Start: Unknown currently smokes 1/2 Pack Daily x 7 yrs ETOH Use Rarely consumes alcohol Tobacco Use Start: Unknown Patient is a current smoker, smokes every day Tobacco Use Start: Unknown Light tobacco smoker (10 or fewer cigarettes/day) Smoking Status Reviewed: 11/19/19 Light tobacco smoker (10 or fewer cigarettes/day) Allergies, Adverse Reactions, Alerts Active Allergies Reaction Severity Comments Date Sulfa Drugs 12/28/2012 Oxycodone Sweating 06/17/2016 Clindamycin 12/28/2012 Penicillin 12/28/2012 Clavulanic Acid Itch 07/01/2015 Augmentin 12/28/2012 Amoxicillin Itch 07/01/2015 Flagyl 12/28/2012 Penicillins Rash 12/22/2014 Naprosyn nausea 12/28/2012 Iodine Diarrhea 12/22/2014 Meloxicam itching 09/09/2013 Metronidazole Nausea And Vomiting From 12/22/2014 Oral Flagyl Iodinated Diagnostic Agents Moderate 12/21/2015 Percocet 04/15/2017 Medications Active Medications SIG Qnty Indications Ordering Provider Date Tamsulosin HCL 1 by mouth every 14caps N20.0 Funmi Camejo, 12/28/2018 0.4mg day M.D. Capsules Ibuprofen 1 by mouth every 60tabs Ulises Rico, 12/21/2015 600mg Tablets 8 hours as M.D. needed pain use as first line pain control Cymbalta qd Unknown 30mg Caps DR Part Vitamin D 1 po qd Unknown 2000Unit Capsules Losartan Potassium 1 po qd 30tabs Unknown 25mg Tablets Flonase Allergy Relief prn Unknown Loratadine 1 by mouth every Unknown 10mg Capsules day Rosuvastatin Calcium TK 1 T PO qd Unknown 20mg Tablets Januvia 1 by mouth every Unknown 50mg Tablets day Medications Administered in Office Medication SIG Qnty Indications Ordering Provider Date Depo-Medrol 20mg [facility] Injection Immunizations Description No Information Available Vital Signs Date Vital Result Comment 11/25/2019 3:26pm BP Systolic Sitting Left Arm 122 mmHg BP Diastolic Sitting Left Arm 78 mmHg Body Temperature 98.2 F Heart Rate 94 /min Respiratory Rate 16 /min Height 63 inches 5'3" Weight 167.00 lb Pain Level 0 BMI (Body Mass Index) 29.6 kg/m2 BSA (Body Surface Area) 1.79 m2 [place] body weight in kilograms 52 kg O2 % BldC Oximetry 99 % 12/28/2018 2:48pm BP Systolic 149 mmHg BP Diastolic 90 mmHg Body Temperature 98.4 F Heart Rate 101 /min Respiratory Rate 18 /min Weight 171.12 lb Pain Level 0 O2 % BldC Oximetry 95 % Results Description No Information Available Procedures Date Code Description Status 04/27/2013 [id number] Mammogram Completed 10/09/2012 [id number] Mammogram Completed Medical Devices Description No Information Available Encounters Type Date Location Provider Dx Diagnosis Office Visit 11/25/2019 3:30p Urology Funmi Camejo M.D. N20.0 Calculus of kidney Assessments Date Code Description Provider 11/25/2019 N20.0 Calculus of kidney Funmi Camejo M.D. Plan of Treatment Future Appointment(s):11/28/2020 11:00 am - Funmi Camejo M.D. at Urology Functional Status Description No Information Available Mental Status Description No Information Available Referrals Description No Information Available
--- OUTSIDE RECORDS SUMMARY | 2019-12-05 07:47 | XMS REPORT | Continuity of Care Document ---
:1960 External Reference #:[id number] Author Name Mohinder Garcia MD (transmitted by agent of provider Aung Wilhelm) Address [facility] [place] [address] Care Team Providers Name Role Phone Kendall Mccain MD - Family Medicine Care Team Information Tiler [phone] Problems Active Problems Provider Date Current tear of medial cartilage AND/OR meniscus Catalino Garcia MD Onset: 01/2018 of knee Current tear of lateral cartilage AND/OR meniscus Catalino Garcia MD Onset: of knee Social History Type Date Description Comments Sex Unknown ETOH Use Rarely consumes alcohol Tobacco Use Start: Unknown Light tobacco smoker (10 or fewer cigarettes/day) Recreational Drug Use Denies Drug Use Smoking Status Reviewed: 12/02/19 Light tobacco smoker (10 or fewer cigarettes/day) Exercise Type/Frequency Does not exercise Allergies, Adverse Reactions, Alerts Active Allergies Reaction Severity Comments Date Flagyl nausea 07/29/2016 Meloxicam itching 07/29/2016 Sulfa Antibiotics diarrhea 07/29/2016 Clindamycin shakes 07/29/2016 Iodine 07/29/2016 Percocet profuse sweating 07/29/2016 Penicillin itch,nausea 07/29/2016 Doxycycline 05/18/2019 Medications Active Medications SIG Qnty Indications Ordering Provider Date Cymbalta 1 by mouth Unknown 30mg Caps DR Part every day Losartan Potassium 1 po daily Unknown 25mg Tablets Vitamin D 1 by mouth Unknown (Cholecalciferol) every day 2000Unit Capsules Loratadine Allergy Relief 1 by mouth Unknown 10mg every day as Tablets Dispers needed Ibuprofen 2 po as needed Unknown 200mg Tablets Rosuvastatin Calcium TK 1 T PO qd Unknown 20mg Tablets Cyclobenzaprine HCL TK 1 T PO tid Unknown 10mg prn Tablets Januvia 1 by mouth Unknown 50mg Tablets every day Medications Administered in Office Medication SIG Qnty Indications Ordering Provider Date Celestone 3 mg and 3mg Mohinder Garcia MD 11/15/2019 Injection Celestone 3 mg and 3mg Mohinder Garcia MD 11/15/2019 Injection Celestone 3 mg and 3mg Mohinder Garcia MD 05/18/2019 Injection Celestone 3 mg and 3mg Mohinder Garcia MD 10/15/2018 Injection Immunizations Description No Information Available Vital Signs Date Vital Result Comment 12/02/2019 10:20am Height 63 inches 5'3" Weight 161.00 lb Heart Rate 100 /min BP Systolic Sitting 144 mmHg BP Diastolic Sitting 86 mmHg Respiratory Rate 16 /min Pain Level 5 O2 % BldC Oximetry 97 % BMI (Body Mass Index) 28.5 kg/m2 11/15/2019 10:39am Height 63 inches 5'3" Heart Rate 90 /min BP Systolic Sitting 124 mmHg BP Diastolic Sitting 80 mmHg Respiratory Rate 16 /min Pain Level 4 O2 % BldC Oximetry 98 % Results Description No Information Available Procedures Date Code Description Status 12/02/201974176 Inject Tendon Sheath Or Ligament Aponeurosis Eg Plantar Completed Fascia 11/15/2019 83610 Inject/Drain Joint/Bursa Intermediate W/O US Completed 07/17/2016 74913613 Mammogram Completed Medical Devices Description No Information Available Encounters Type Date Location Provider Dx Diagnosis Office Visit 11/15/2019 [facility] Mohinder Garcia M18.12 Unil primary 10:30a at [place] osteoarth of first carpometacarp joint, l hand M25.532 Pain in left wrist Assessments Date Code Description Provider 12/02/2019 M65.841 Other synovitis and tenosynovitis, right hand Mohinder Garcia MD 11/15/2019 M18.12 Unilateral primary osteoarthritis of first Mohinder Garcia MD carpometacarpal joint, left hand 11/15/2019 M25.532 Pain in left wrist Mohinder Garcia MD Plan of Treatment 12/02/2019 - Mohinder Garcia MDM65.841 Other synovitis and tenosynovitis, right handComments:ice, home exercisesFollow up:Follow up: As needed Functional Status Description No Information Available Mental Status Description No Information Available Referrals Description No Information Available
--- OUTSIDE RECORDS SUMMARY | 2019-12-05 07:47 | XMS REPORT ---
:1960 Author Organization [facility] Address [address] [place] [address] Care Team Providers Name Role Phone Ramesh Westfall Unavailable Unavailable PROBLEMS Type Condition ICD9-CM MYH87-KA Onset Condition SNOMED Code Code Code Dates Status Problem Unspecified ovarian N83.20 Active 10883531 cysts Problem Postmenopausal N95.0 Active 99099824 bleeding Problem Dyspareunia N94.1 Active 90719506 Problem Family history of Z80.3 Active 146709868 malignant neoplasm of breast Problem Unspecified lump in N63 Active 20933384 breast Problem Leiomyoma of D25.9 Active 36178568 uterus, unspecified Problem Mastodynia N64.4 Active 81893446 Problem Noninflammatory N90.9 Active 826168452 disorder of vulva and perineum, unspecified Problem Breast Mass 611.72 Active 30866818 Problem 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 Problem Family history of Z80.51 Active 594232507 malignant neoplasm of kidney Problem 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 Problem Unspecified lump in N63.21 Active 911698339333389 the left breast, upper outer quadrant Problem Unspecified lump in N63.12 Active 481891141 the right breast, upper inner quadrant Problem Unspecified urinary R32 Active 335631263 incontinence ALLERGIES No Information ENCOUNTERS Encounter Location Date Diagnosis [facility] 103 Sep, OBGYN [place] [id number] [facility] 103 Sep, [place] [id number] [facility] 103 Jan, OBGYN [place] [id number] [facility] 103 Oct, Anogenital (venereal ) OBN [facility], warts A63.0 [place] [id number] [place] [facility] 103 Oct, Noninflammatory disorder OBGYN [facility], of vulva and perineum, [place] [id number] unspecified N90.9 [place] [facility] 103 Oct, [place] [id number] [facility] 103 Oct, [place] [id number] [facility] 103 Sep, [facility] [place] [id number] (general) (routine) with abnormal findings Z01.411 ; Encounter for screening mammogram for malignant neoplasm of breast Z12.31 ; Encounter for screening for malignant neoplasm of colon Z12.11 ; Leiomyoma of uterus, unspecified D25.9 and Noninflammatory disorder of vulva and perineum, unspecified N90.9 [facility] 103 Sep, Leiomyoma of uterus, OBGYN [facility], unspecified D25.9 and [place] [id number] Family history of malignant neoplasm of ovary Z80.41 [place] [facility] 103 Sep, [place] [id number] [facility] 103 Sep, [place] [id number] [facility] 103 Sep, [facility] gynecological examination [place] [id number] (general) (routine) without abnormal findings Z01.419 ; [...] the left breast, upper outer quadrant N63.21 [facility] Aug, [place] [id number] [facility] 103 Sep, [place] [id number] [facility] Sep, [place] [id number] [facility] 103 Sep, Encounter for [facility], gynecological examination [place] [id number] (general) (routine) with abnormal findings Z01.411 ; [...] unspecified quadrant N63.20 and Postmenopausal bleeding N95.0 [facility] Sep, Family history of [facility], malignant neoplasm of [place] [id number] ovary Z80.41 and Leiomyoma of uterus, unspecified D25.9 [facility] 103 Jun, Family history of [facility], malignant [place]oplasm [place] [id number] ovary Z80.41 and Leiomyoma of uterus, unspecified D25.9 [facility] 103 Jun, Family history of [facility], malignant neoplasm of [place] [id number] ovary Z80.41 and Leiomyoma of uterus, unspecified D25.9 [facility] Apr, [place] [id number] [facility] 103 March, [place] [id number] [facility] 103 March, Family history of [facility], malignant neoplasm of [place] [id number] ovary Z80.41 ; Family history of malignant neoplasm of breast Z80.3 ; Mastodynia N64.4 ; Diffuse cystic mastopathy of left breast N60.12 and Leiomyoma of uterus, unspecified D25.9 [facility] March, Family history of [facility], malignant neoplasm [place] [id number] ovary Z80.41 ; Unspecified ovarian cysts N83.20 and Leiomyoma of uterus, unspecified D25.9 [facility] 103 Feb, [facility], malignant neoplasm of [place] [id number] ovary Z80.41 ; Family history of malignant neoplasm of breast Z80.3 and Unspecified lump in breast N63 [facility] 103 Jan, [facility], N95.0 ; Dyspareunia N94.1 [place] [id number] ; Family history of malignant neoplasm of ovary Z80.41 ; Family history of malignant neoplasm of breast Z80.3 ; Unspecified lump in breast N63 and Family history of malignant neoplasm of kidney Z80.51 [facility] Dec, [place] [id number] [facility] 103 Oct, Postmenopausal bleeding [facility], N95.0 ; Dyspareunia N94.1 [place] [id number] ; Family history of malignant neoplasm of ovary Z80.41 ; Family history of malignant neoplasm of breast Z80.3 ; Unspecified lump in breast N63 and Family history of malignant neoplasm of kidney Z80.51 [facility] 103 Sep, [place] [id number] [facility] Sep, Dysuria R30.0 [place] [id number] [facility] 103 Aug, Encounter for [facility], gynecological examination [place] [id number] (general) (routine) with abnormal findings Z01.411 ; Encounter for screening mammogram for malignant neoplasm of breast Z12.31 ; Encounter for screening for malignant neoplasm of colon Z12.11 ; Family history of malignant neoplasm of ovary Z80.41 ; Family history of malignant neoplasm of breast Z80.3 and Unspecified lump in breast N63 [facility] Aug, Family history of [facility], malignant neoplasm of [place] [id number] ovary Z80.41 [facility] 103 Jul, Urinary tract infection, [facility], site not specified N39.0 ; [place] [id number] Breast Mass 611.72 ; Family history of malignant neoplasm of ovary Z80.41 and Family history of malignant neoplasm of breast Z80.3 [facility] Jul, Postmenopausal bleeding [facility], N95.0 ; Dyspareunia N94.1 [place] [id number] ; Breast Mass 611.72 ; Family history of malignant neoplasm of ovary Z80.41 ; Family history of malignant neoplasm of breast Z80.3 ; Family history of malignant neoplasm of kidney Z80.51 and Biliuria R82.2 [facility] [address] Jun, [facility] [place] [id number] [facility] 103 Jun, Postmenopausal bleeding [facility], N95.0 [place] [id number] [facility] 103 May, [place] [id number] [facility] 103 May, Postmenopausal bleeding [facility], N95.0 [place] [id number] [facility] May, Postmenopausal bleeding OBGYN [facility], N95.0 and Dyspareunia [place] [id number] N94.1 [facility] 103 May, OBGYN [facility], [place] [id number] [facility] 103 Apr, Encounter for screening OBGYN [facility], mammogram for malignant [place] [id number] neoplasm of breast Z12.31 [place] [address] [facility] Apr, [address]yspareunia N94.[address] [place], Postmenopausal bleeding [place] [id number] N95.0 [facility] 103 Feb, Family history of OBGYN [facility], malignant neoplasm [place] [id number] ovary Z80.41 ; Family history of malignant neoplasm of breast Z80.3 and Encounter for screening mammogram for malignant neoplasm of breast Z12.31 [facility] 103 Feb, Family history of OBGYN [facility], malignant neoplasm [place] [id number] ovary Z80.41 [facility] 103 Aug, OBG[place] [id number] [facility] 103 Aug, Family history of OBGYN [facility], malignant neoplasm [place] [id number] ovary Z80.41 and Unspecified ovarian cysts N83.20 [facility] Aug, Unspecified ovarian cysts OBGYN [facility], N83.20 [place] [id number] [facility] Jul, [place] [id number] [facility] 103 May, Osteopenia 733.90 [place] [id number] [facility] May, ROUTINE ERP PROGRAMMER EXAMINATION OBGYN [facility], V72.31 ; PAP SMEAR W/O ERP PROGRAMMER [place] [id number] EXAM V76.2 ; SCREEN MALIG NEOP-COLON V76.51 and SCREEN MAMMOGRAM NEC V76.12 [facility] 103 Feb, Ovarian cyst NOS 620.2 OBGYN [place] [id number] [facility] 103 Feb, Postmenopausal bleeding OBGYN [facility], 627.1 [place] [id number] [facility] [place] [facility] 103 Jan, Postmenopausal bleeding OBGYN [facility], 627.1 [place] [id number] [facility] 103 Jan, O[place] [id number] [place] [address], [place] [id number] [facility] 103 Dec, ENDOMETRIAL HYPERPLASIA, OBGYN [facility], UNSPEC. 621.30 [place] [id number] [facility] 103 Dec, ENDOMETRIAL HYPERPLASIA, OBGYN [facility], UNSPEC. 621.30 [place] [id number] [place] [facility] 103 Nov, OBGYN [facility], [place] [id number] [facility] Nov, Benign endometrial OBGYN [facility], hyperplasia 621.34 [place] [id number] [facility] [place] [facility] 103 Nov, ENDOMETRIAL HYPERPLASIA, OBGYN [facility], UNSPEC. 621.30 [place] [id number] [facility] 103 Nov, Postmenopausal bleeding OBGYN [facility], 627.1 [place] [id number] [facility] 103 Nov, Ovarian cyst NOS 620.2 and OBGYN [facility], ENDOMETRIAL HYPERPLASIA, [place] [id number] UNSPEC. 621.30 [facility] 103 Nov, FM HX OVARY MALIGNANCY OBGYN [facility], V16.41 and ABN FINDINGS- [place] [id number] [place] 793.5 [facility] 103 Oct, FM HX OVARY MALIGNANCY OBGYN [facility], V16.41 and FAMILY [place] [id number] HX-BREAST MALIG V16.3 [facility] 103 Oct, FM HX OVARY MALIGNANCY OBGYN [facility], V16.41 [place] [id number] [facility] 103 May, VULVAR LESION 624.9 OBG[place] [id number] [facility] 103 May, VULVAR LESION 624.9 OBG[place], [place] [id number] [facility] 103 Apr, ROUTINE ERP PROGRAMMER EXAMINATION OBGYN [facility], V72.31 ; PAP SMEAR W/O ERP PROGRAMMER [place] [id number] EXAM V76.2 ; SCREEN MALIG NEOP-COLON V76.51 ; SCREEN MAMMOGRAM NEC V76.12 ; FAMILY HX-BREAST MALIG V16.3 ; FM HX OVARY MALIGNANCY V16.41 ; Menopausal symptoms 627.2 and VULVAR LESION 624.9 [facility] 103 Apr, FM HX OVARY MALIGNANCY OBGYN [facility], V16.41 [place] [id number] [facility] 103 Sep, FAMILY HX-BREAST MALIG OBGYN [facility], V16.3 ; FM HX OVARY [place] [id number] MALIGNANCY V16.41 and Menopausal symptoms 627.2 [place] [facility] Aug, OBGYN [place] [id number] [facility] 103 Aug, FAMILY HX-BREAST MALIG OBGYN [address] [place], V16.3 ; FM HX OVARY [place] [id number] MALIGNANCY V16.41 and Menopausal symptoms 627.2 [place] [facility] 103 Jul, OBGYN [place], [place] [id number] [facility] 103 Jul, Ovarian cyst NOS 620.2 ; OBGYN [facility], Postmenopausal bleeding [place] [id number] 627.1 ; FAMILY HX-BREAST MALIG V16.3 ; FM HX OVARY MALIGNANCY V16.41 ; FAMILY HX-KIDNEY MALIG V16.51 and HEMATURIA NOS 599.70 [place] [facility] 103 Jul, Ovarian cyst NOS 620.2 OBGYN [place] [id number] [facility] 103 Jun, OBG[place], [place] [id number] [facility] 103 Jun, Postmenopausal bleeding OBGYN [facility], 627.1 ; Endometrial polyp [place] [id number] 621.0 ; Ovarian cyst NOS 620.2 ; FAMILY HX-BREAST MALIG V16.3 ; FM HX OVARY MALIGNANCY V16.41 ; FAMILY HX-KIDNEY MALIG V16.51 and HEMATURIA NOS 599.70 [place] [address], [place], [place] [id number] [facility] 103 Jun, OBGYN [place], [place] [id number] [facility] 103 Jun, Postmenopausal bleeding OBGYN [facility], 627.1 and Endometrial [place] [id number] polyp 621.0 [place] [facility] 103 May, OBGYN [place], [place] [id number] [facility] 103 May, OBG[place] [id number] [facility] 103 May, Postmenopausal bleeding OBGYN [facility], 627.1 ; Endometrial polyp [place] [id number] 621.0 ; Ovarian cyst NOS 620.2 ; FAMILY HX-BREAST MALIG V16.3 ; FM HX OVARY MALIGNANCY V16.41 and FAMILY HX-KIDNEY MALIG V16.51 [place] [facility] 103 May, OBGYN [facility], [place] [id number] [place] [facility] 103 May, Postmenopausal bleeding OBGYN [facility], 627.1 and Endometrial [place] [id number] polyp 621.0 [place] [facility] 103 May, Postmenopausal bleeding OBGYN [facility], 627.1 [place] [id number] [place] [facility] 103 May, Postmenopausal bleeding OBGYN [facility], 627.1 ; Endometrial polyp [place] [id number] 621.0 and Ovarian cyst NOS 620.2 [place] [facility] 103 May, Postcoital bleeding 626.7 OBGYN [facility], ; Postmenopausal bleeding [place] [id number] 627.1 ; Condyloma NOS 078.10 and Ovarian cyst NOS 620.2 [place] [facility] 103 May, Postcoital bleeding 626.7 OBGYN [facility], ; ABN FINDINGS- [place] [id number] 793.5 and Ovarian cyst NOS 620.2 [place] [facility] 103 Apr, Postcoital bleeding 626.7 OBGYN [facility], and Dyspareunia 625.0 [place] [id number] IMMUNIZATIONS No Known Immunizations SOCIAL HISTORY Never Assessed REASON FOR REFERRAL FUNCTIONAL STATUS PLAN OF CARE VITAL SIGNS MEDICATIONS Unknown Medications PROCEDURES No Known procedures RESULTS No Results REASON FOR VISIT mammo auth Insurance Providers [facility] Member Patient Patient Patient Patient Patient Subscriber Subscriber Subscriber Group Insurance Plan Plan Plan Plan ID Relationship Address Phone Name Date of ID Name Date of No Type Insurance Insurance Insurance Coverage to Subscriber Address Phone Name Dates Yohana [place]ICA [place] [phone] Yohana Lal [id number] Blue [id number] [address] Cross/[place] Cross/Blue Shield [id number] Shield Yohana [phone] Yohana Lal [id number] Blue [id number] [address] 0 [place] [id number] Shield MEDICAL (GENERAL) HISTORY Type Description Date [...]
--- OUTSIDE RECORDS SUMMARY | 2019-12-05 07:47 | XMS REPORT ---
:1960 Author Name Trina Kirkpatrick Address [address] [place] [address] Care Team Providers Name Role Phone Trina Kirkpatrick Unavailable Unavailable PROBLEMS Type Condition ICD9-CM [id number] Onset Condition SNOMED Code Code Code Dates Status Problem Unspecified ovarian N83.20 Active 21752774 cysts Problem Postmenopausal N95.0 Active 29896174 bleeding Problem Dyspareunia N94.1 Active 81992757 Problem Family history of Z80.3 Active 468531695 malignant neoplasm of breast Problem Unspecified lump in N63 Active 75747607 breast Problem Leiomyoma of D25.9 Active 71062115 uterus, unspecified Problem Mastodynia N64.4 Active 50405136 Problem Noninflammatory N90.9 Active 995432311 disorder of vulva and perineum, unspecified Problem Breast Mass 611.72 Active 84926730 Problem 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 Problem Family history of Z80.51 Active 019922738 malignant neoplasm of kidney Problem 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 Problem Unspecified lump in N63.21 Active [id number] the left breast, upper outer quadrant Problem Unspecified lump in N63.12 Active 922625796 the right breast, upper inner quadrant Problem Unspecified urinary R32 Active 441747622 incontinence ALLERGIES Substance Reaction Event Type Date Status clindamycin shakes Drug Allergy Sep, Active Flagyl nausea Drug Allergy Sep, Active Percocet sweating Drug Allergy Sep, Active meloxicam itchy Drug Allergy Sep, Active all cillins itching, rash Drug Allergy Sep, Active Sulfa GI upset Drug Allergy Sep, Active iodine diarrhea Drug Allergy Sep, Active ENCOUNTERS Encounter Location Date Diagnosis [facility] Sep, [place] [id number] [facility] Sep, [place] [id number] [facility] Jan, [place] [id number] [facility] 103 Oct, [facility] w[facility] A63.0 [place] [id number] [facility] Oct, [facility], of vulva and perineum, [place] [id number] unspecified N90.9 [facility] 103 Oct, [place] [id number] [facility] Oct, [place] [id number] [facility] Sep, [facility] gynecological examination [place] [id number] (general) (routine) with abnormal findings Z01.411 ; Encounter for screening mammogram for malignant neoplasm of breast Z12.31 ; Encounter for screening for malignant neoplasm of colon Z12.11 ; Leiomyoma of uterus, unspecified D25.9 and Noninflammatory disorder of vulva and perineum, unspecified N90.9 [facility] 103 Sep, Leiomyoma of uterus, OBGYN [facility], unspecified D25.9 and [place] [id number] Family history of malignant neoplasm of ovary Z80.41 [facility] 10 Sep, 2018 [place] [id number] [facility] 103 08 Sep, 2018 [place] [id number] [facility] Sep, Encounter for [facility] gynecological examination [place] [id number] (general) (routine) without abnormal findings Z01.419 ; [...] the left breast, upper outer quadrant N63.21 [facility] Aug, [place] [id number] [facility] 103 Sep, [place] [id number] [facility] Sep, [place] [id number] [facility] 103 Sep, Encounter for [facility] gynecological examination [place] [id number] (general) (routine) with abnormal findings Z01.411 ; [...] unspecified quadrant N63.20 and Postmenopausal bleeding N95.0 [facility] 103 Sep, Family history of [facility], malignant neoplasm [place] [id number] ovary Z80.41 and Leiomyoma of uterus, unspecified D25.9 [facility] Jun, Family history of [facility], malignant neoplasm [place] [id number] ovary Z80.41 and Leiomyoma of uterus, unspecified D25.9 [facility] Jun, Family history of OBGYN [facility], [place]oplasm [place] [id number] ovary Z80.41 and Leiomyoma of uterus, unspecified D25.9 [facility] Apr, [facility], [place] [id number] [facility] March, [place]BG[place] [id number] [facility] March, Family history of OBGYN [facility], malignant neoplasm [place] [id number] ovary Z80.41 ; Family history of malignant neoplasm of breast Z80.3 ; Mastodynia N64.4 ; Diffuse cystic mastopathy of left breast N60.12 and Leiomyoma of uterus, unspecified D25.9 [facility] March, Family history of OBGYN [facility], malignant [place]oplasm [place] [id number] ovary Z80.41 ; Unspecified ovarian cysts N83.20 and Leiomyoma of uterus, unspecified D25.9 [facility] Feb, Family history of OBGYN [facility], malignant neoplasm of [place] [id number] ovary Z80.41 ; Family history of malignant neoplasm of breast Z80.3 and Unspecified lump in breast N63 [facility] Jan, Postmenopausal bleeding OBGYN [facility], N95.0 ; Dyspareunia N94.1 [place] [id number] ; Family history of malignant neoplasm of ovary Z80.41 ; Family history of malignant neoplasm of breast Z80.3 ; Unspecified lump in breast N63 and Family history of malignant neoplasm of kidney Z80.51 [facility] Dec, [facility]BG[facility], [place] [id number] [facility] Oct, Postmenopausal bleeding OBGYN [facility], N95.0 ; Dyspareunia N94.1 [place] [id number] ; Family history of malignant neoplasm of ovary Z80.41 ; Family history of malignant neoplasm of breast Z80.3 ; Unspecified lump in breast N63 and Family history of malignant neoplasm of kidney Z80.51 [facility] 103 Sep, [place] [id number] [facility] 103 Sep, Dysuria R30.0 [place] [id number] [facility] 103 Aug, Encounter for [facility] gynecological examination [place] [id number] (general) (routine) with abnormal findings Z01.411 ; Encounter for screening mammogram for malignant neoplasm of breast Z12.31 ; Encounter for screening for malignant neoplasm of colon Z12.11 ; Family history of malignant neoplasm of ovary Z80.41 ; Family history of malignant neoplasm of breast Z80.3 and Unspecified lump in breast N63 [facility] 103 Aug, Family history of [facility], malignant [place]oplasm [place] [id number] ovary Z80.41 [facility] 103 Jul, Urinary tract infection, [facility], site not specified N39.0 ; [place] [id number] Breast Mass 611.72 ; Family history of malignant neoplasm of ovary Z80.41 and Family history of malignant neoplasm of breast Z80.3 [facility] 103 Jul, [facility], N95.0 ; Dyspareunia N94.1 [place] [id number] ; Breast Mass 611.72 ; Family history of malignant neoplasm of ovary Z80.41 ; Family history of malignant neoplasm of breast Z80.3 ; Family history of malignant neoplasm of kidney Z80.51 and Biliuria R82.2 [facility] [address] Jun, Medical [place] [id number] [facility] 103 Jun, Postmenopausal bleeding OBGYN [facility], N95.0 [place] [id number] [facility] 103 May, OBGYN [facility], [place] [id number] [facility] 103 May, Postmenopausal bleeding OBGYN [facility], N95.0 [place] [id number] [facility] 103 May, Postmenopausal bleeding OBGYN [facility], N95.0 and Dyspareunia [place] [id number] N94.1 [facility] 103 May, OBGYN [facility], [place] [id number] [facility] Apr, Encounter for screening OBN [facility], mammogram for malignant [place] [id number] neoplasm of breast Z12.[address] Apr, [address]yspareunia N94.[address] [place], Postmenopausal bleeding [place] [id number] N95.0 [facility] Feb, Family history of OBGYN [facility], malignant neoplasm of [place] [id number] ovary Z80.41 ; Family history of malignant neoplasm of breast Z80.3 and Encounter for screening mammogram for malignant neoplasm of breast Z12.31 [facility] Feb, Family history of OBGYN [facility], malignant neoplasm [place] [id number] ovary Z80.41 [facility] 103 Aug, [facility]BGYN [facility], [place] [id number] [facility] 103 Aug, Family history of OBGYN [facility], malignant neoplasm [place] [address] ovary Z80.41 and Unspecified ovarian cysts N83.20 [facility] 103 Aug, Unspecified ovarian cysts OBGYN [facility], N83.20 [place] [id number] [facility] 103 Jul, [place] [id number] [facility] May, Osteopenia 733.90 [place] [id number] [facility] May, ROUTINE BOOKS BINDER EXAMINATION OBGYN [facility], V72.31 ; PAP SMEAR W/O BOOKS BINDER [place] [id number] EXAM V76.2 ; SCREEN MALIG NEOP-COLON V76.51 and SCREEN MAMMOGRAM NEC V76.12 [facility] Feb, Ovarian cyst NOS 620.2 [place] [id number] [facility] Feb, Postmenopausal bleeding OBGYN [facility], 627.1 [place] [id number] [facility] Jan, Postmenopausal bleeding OBGYN [facility], 627.1 [place] [id number] [facility] Jan, [place] [id number] [facility] [address] Dec, [place] [id number] [facility] 103 Dec, ENDOMETRIAL HYPERPLASIA, OBGYN [facility], UNSPEC. 621.30 [place] [id number] [facility] 103 Dec, ENDOMETRIAL HYPERPLASIA, OBGYN [facility], UNSPEC. 621.30 [place] [id number] [facility] Nov, [place] [id number] [facility] Nov, Benign endometrial OBGYN [facility], hyperplasia 621.34 [place] [id number] [facility] 103 Nov, ENDOMETRIAL HYPERPLASIA, OBGYN [facility], UNSPEC. 621.30 [place] [id number] [facility] Nov, Postmenopausal bleeding OBGYN [facility], 627.1 [place] [id number] [facility] 103 Nov, Ovarian cyst NOS 620.[address] [facility], ENDOMETRIAL HYPERPLASIA, [place] [id number] UNSPEC. 621.30 [facility] Nov, FM HX OVARY MALIGNANCY OBGYN [facility], V16.41 and ABN FINDINGS- [place] [id number] [place] [address] [facility] 103 Oct, FM HX OVARY MALIGNANCY OBGYN [facility], V16.41 and FAMILY [place] [id number] HX-BREAST MALIG V16.3 [facility] 103 Oct, FM HX OVARY MALIGNANCY OBGYN [facility], V16.[id number] [facility] 103 May, VULVAR LESION 624.9 [place] [id number] [facility] 103 May, VULVAR LESION 624.9 [place] [id number] [facility] 103 Apr, ROUTINE BOOKS BINDER EXAMINATION OBN [facility], V72.31 ; PAP SMEAR W/O BOOKS BINDER [place] [id number] EXAM V76.2 ; SCREEN MALIG NEOP-COLON V76.51 ; SCREEN MAMMOGRAM NEC V76.12 ; FAMILY HX-BREAST MALIG V16.3 ; FM HX OVARY MALIGNANCY V16.41 ; Menopausal symptoms 627.[address].9 [facility] 103 Apr, FM HX OVARY MALIGNANCY OBGYN [facility], V16.41 [place] [id number] [facility] Sep, FAMILY HX-BREAST MALIG OBGYN [facility], V16.3 ; FM HX OVARY [place] [id number] MALIGNANCY V16.41 and Menopausal symptoms 627.2 [facility] Aug, [place] [id number] [facility] 103 Aug, FAMILY HX-BREAST MALIG OBGYN [facility], V16.3 ; FM HX OVARY [place] [id number] MALIGNANCY V16.41 and Menopausal symptoms 627.2 [facility] 103 Jul, [place] [id number] [facility] 103 Jul, Ovarian cyst NOS 620.2 ; OBGYN [facility], Postmenopausal bleeding [place] [id number] 627.1 ; FAMILY HX-BREAST MALIG V16.3 ; FM HX OVARY MALIGNANCY V16.41 ; FAMILY HX-KIDNEY MALIG V16.51 and HEMATURIA NOS 599.70 [facility] 103 Jul, Ovarian cyst NOS 620.2 [place] [id number] [facility] Jun, [place] [id number] [facility] 103 Jun, Postmenopausal bleeding OBGYN [facility], 627.1 ; Endometrial polyp [place] [id number] 621.0 ; Ovarian cyst NOS 620.2 ; FAMILY HX-BREAST MALIG V16.3 ; FM HX OVARY MALIGNANCY V16.41 ; FAMILY HX-KIDNEY MALIG V16.51 and HEMATURIA NOS 599.70 [facility] [address] Jun, [place] [id number] [facility] Jun, [place] [id number] [facility] 103 Jun, Postmenopausal bleeding OBGYN [facility], 627.1 and Endometrial [place] [id number] polyp 621.0 [facility] 103 May, [place] [id number] [facility] May, [place], [place] [id number] [facility] 103 May, Postmenopausal bleeding OBN [facility], 627.1 ; Endometrial polyp [place] [id number] 621.0 ; Ovarian cyst NOS 620.2 ; FAMILY HX-BREAST MALIG V16.3 ; FM HX OVARY MALIGNANCY V16.41 and FAMILY HX-KIDNEY MALIG V16.51 [facility] May, [place] [id number] [facility] May, Postmenopausal bleeding OBGYN [facility], 627.1 and Endometrial [place] [id number] polyp 621.0 [facility] 103 May, Postmenopausal bleeding OBN [facility], 627.1 [place] [id number] [facility] May, Postmenopausal bleeding OBN [facility], 627.1 ; Endometrial polyp [place] [id number] 621.0 and Ovarian cyst NOS 620.2 [facility] 103 May, [facility]coital bleeding 626.7 [facility], ; Postmenopausal bleeding [place] [id number] 627.1 ; Condyloma NOS 078.10 and Ovarian cyst NOS 620.2 [facility] May, Postcoital bleeding 626.7 [facility], ; ABN FINDINGS- [place] [id number] 793.5 and Ovarian cyst NOS 620.2 [facility] 103 Apr, Postcoital bleeding 626.7 [facility], and Dyspareunia 625.0 [place] [id number] IMMUNIZATIONS No Known Immunizations SOCIAL HISTORY Never Assessed REASON FOR REFERRAL FUNCTIONAL STATUS PLAN OF CARE Activity Details Follow Up schedule mammo, vulvar colposcopy, annual one year Reason: VITAL SIGNS Height 62.25 in 2019-09-23 Weight 167 lbs 2019-09-23 BMI 30.30 kg/m2 2019-09-23 Blood pressure systolic 130 mm Hg 2019-09-23 Blood pressure diastolic 80 mm Hg 2019-09-23 MEDICATIONS Medication Instructions Dosage Frequency Start End Duration Status Date Date rosuvastatin 5 orally once a 1 cap(s) 24h 30 day(s) Active mg day Vitamin D3 1000 orally once a 2 tab(s) 24h Active intl units day loratadine 10 mg orally once a 1 tab(s) 24h Active day Cymbalta 30 mg orally qd 1 cap(s) 24h 30 day(s) Active Flonase nasal 2 spray 24h Active spray 50mcg per each spray nostril losartan 25 mg orally once a 1 tab(s) 24h 30 day(s) Active day PROCEDURES Procedure Date Ordered Result Body Site TEST FOR BLOOD, FECES Sep 23, 2019 RESULTS Name Result Date Reference Range OCCULT BLOOD,STOOL STOOL OCCULT BLOOD-SINGLE SPEC REASON FOR VISIT Annual with follow up Insurance Providers [facility] Member Patient Patient Patient Patient Patient Subscriber Subscriber Subscriber Group Insurance Plan Plan Plan Plan ID Relationship Address Phone Name Date of ID Name Date of No Type Insurance Insurance Insurance Coverage to Subscriber Address Phone Name Dates [facility] [phone] Yohana Lal [id number] Blue [id number] 89 [address] 0 Cross/Blue [place] Cross/Blue Shield [address] Shield [facility] [phone] Yohana Lal [id number] Blue [id number] 89 Blue [place] 0 Cross/Blue [place] Cross/Blue Shield [id number] Shield MEDICAL (GENERAL) HISTORY Type Description Date [...]
--- OUTSIDE RECORDS SUMMARY | 2019-12-05 07:47 | XMS REPORT ---
:1960 Author Name Trina Kirkpatrick Address [address] [place] [address] Care Team Providers Name Role Phone Trina Kirkpatrick Unavailable Unavailable PROBLEMS Type Condition ICD9-CM [id number] Onset Condition SNOMED Code Code Code Dates Status Problem Unspecified ovarian N83.20 Active 50623345 cysts Problem Postmenopausal N95.0 Active 19364250 bleeding Problem Dyspareunia N94.1 Active 81638810 Problem Family history of Z80.3 Active 481962132 malignant neoplasm of breast Problem Unspecified lump in N63 Active 90328013 breast Problem Leiomyoma of D25.9 Active 51804816 uterus, unspecified Problem Mastodynia N64.4 Active 27613474 Problem Noninflammatory N90.9 Active 412536922 disorder of vulva and perineum, unspecified Problem Breast Mass 611.72 Active 56080851 Problem 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 Problem Family history of Z80.51 Active 161550022 malignant neoplasm of kidney Problem 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 Problem Unspecified lump in N63.21 Active [id number] the left breast, upper outer quadrant Problem Unspecified lump in N63.12 Active 180399625 the right breast, upper inner quadrant Problem Unspecified urinary R32 Active 075260854 incontinence ALLERGIES Substance Reaction Event Type Date Status clindamycin shakes Drug Allergy Oct, Active Flagyl nausea Drug Allergy Oct, Active Percocet sweating Drug Allergy Oct, Active meloxicam itchy Drug Allergy Oct, Active all cillins itching, rash Drug Allergy Oct, Active Sulfa GI upset Drug Allergy Oct, Active iodine diarrhea Drug Allergy Oct, Active ENCOUNTERS Encounter Location Date Diagnosis [facility] Sep, [place] [id number] [facility] Sep, [place] [id number] [facility] Jan, OBG[place] [id number] [facility] Oct, [facility] warts A63.0 [place] [id number] [facility] Oct, [facility], of vulva and perineum, [place] [id number] unspecified N90.9 [facility] Oct, [place]BG[place] [id number] [facility] Oct, [place] [id number] [facility] Sep, [facility] gynecological examination [place] [id number] (general) (routine) with abnormal findings Z01.411 ; Encounter for screening mammogram for malignant neoplasm of breast Z12.31 ; Encounter for screening for malignant neoplasm of colon Z12.11 ; Leiomyoma of uterus, unspecified D25.9 and Noninflammatory disorder of vulva and perineum, unspecified N90.9 [facility] Sep, Leiomyoma of uterus, OBGYN [facility], unspecified D25.9 and [place] [id number] Family history of malignant neoplasm of ovary Z80.41 [facility] 10 Sep, 2018 [place] [id number] [facility] 08 Sep, 2018 [place] [id number] [facility] Sep, Encounter for [facility] gynecological examination [place] [id number] (general) (routine) without abnormal findings Z01.419 ; [...] the left breast, upper outer quadrant N63.21 [facility] Aug, [place], [place] [id number] [facility] Sep, [place], [place] [id number] [facility] Sep, [place] [id number] [facility] Sep, Encounter for [facility] gynecological examination [place] [id number] (general) (routine) with abnormal findings Z01.411 ; [...] unspecified quadrant N63.20 and Postmenopausal bleeding N95.0 [facility] Sep, Family history of [facility], malignant neoplasm of [place] [id number] ovary Z80.41 and Leiomyoma of uterus, unspecified D25.9 [facility] Jun, Family history of [facility], malignant neoplasm of [place] [id number] ovary Z80.41 and Leiomyoma of uterus, unspecified D25.9 [facility] Jun, Family history of OBGYN [facility], [place]oplasm [place] [id number] ovary Z80.41 and Leiomyoma of uterus, unspecified D25.9 [facility] Apr, OBGYN [facility], [place] [id number] [facility] March, OBG[place], [place] [id number] [facility] March, Family history of OBGYN [facility], malignant neoplasm [place] [id number] ovary Z80.41 ; Family history of malignant neoplasm of breast Z80.3 ; Mastodynia N64.4 ; Diffuse cystic mastopathy of left breast N60.12 and Leiomyoma of uterus, unspecified D25.9 [facility] March, Family history of OBGYN [facility], malignant neoplasm [place] [id number] ovary Z80.41 ; Unspecified ovarian cysts N83.20 and Leiomyoma of uterus, unspecified D25.9 [facility] Feb, Family history of OBGYN [facility], malignant neoplasm of [place] [id number] ovary Z80.41 ; Family history of malignant neoplasm of breast Z80.3 and Unspecified lump in breast N63 [facility] Jan, Postmenopausal bleeding OBGYN [facility], N95.0 ; Dyspareunia N94.1 [place] [id number] ; Family history of malignant neoplasm of ovary Z80.41 ; Family history of malignant neoplasm of breast Z80.3 ; Unspecified lump in breast N63 and Family history of malignant neoplasm of kidney Z80.51 [facility] Dec, OBGYN [facility], [place] [id number] [facility] Oct, Postmenopausal bleeding OBGYN [facility], N95.0 ; Dyspareunia N94.1 [place] [id number] ; Family history of malignant neoplasm of ovary Z80.41 ; Family history of malignant neoplasm of breast Z80.3 ; Unspecified lump in breast N63 and Family history of malignant neoplasm of kidney Z80.51 [facility] Sep, [place] [id number] [facility] 103 Sep, Dysuria R30.0 [place] [id number] [facility] 103 Aug, Encounter for [facility] gynecological examination [place] [id number] (general) (routine) with abnormal findings Z01.411 ; Encounter for screening mammogram for malignant neoplasm of breast Z12.31 ; Encounter for screening for malignant neoplasm of colon Z12.11 ; Family history of malignant neoplasm of ovary Z80.41 ; Family history of malignant neoplasm of breast Z80.3 and Unspecified lump in breast N63 [facility] 103 Aug, Family history of [facility], malignant neoplasm of [place] [id number] ovary Z80.41 [facility] 103 Jul, Urinary tract infection, [facility], site not specified N39.0 ; [place] [id number] Breast Mass 611.72 ; Family history of malignant neoplasm of ovary Z80.41 and Family history of malignant neoplasm of breast Z80.3 [facility] 103 Jul, [facility], N95.0 ; Dyspareunia N94.1 [place] [id number] ; Breast Mass 611.72 ; Family history of malignant neoplasm of ovary Z80.41 ; Family history of malignant neoplasm of breast Z80.3 ; Family history of malignant neoplasm of kidney Z80.51 and Biliuria R82.2 [facility] [address] Jun, Medical [place] [id number] [facility] 103 Jun, Postmenopausal bleeding OBGYN [facility], N95.0 [place] [id number] [facility] May, OBGYN [facility], [place] [id number] [facility] May, Postmenopausal bleeding OBGYN [facility], N95.0 [place] [id number] [facility] 103 May, Postmenopausal bleeding OBGYN [facility], N95.0 and Dyspareunia [place] [id number] N94.1 [facility] May, OBGYN [facility], [place] [id number] [facility] Apr, Encounter for screening OBN [facility], mammogram for malignant [place] [id number] neoplasm of breast Z12.[address] Apr, [address]yspareunia N94.[address] [place], Postmenopausal bleeding [place] [id number] N95.0 [facility] Feb, Family history of OBGYN [facility], malignant [place]oplasm [place] [id number] ovary Z80.41 ; Family history of malignant neoplasm of breast Z80.3 and Encounter for screening mammogram for malignant neoplasm of breast Z12.31 [facility] Feb, Family history of OBGYN [facility], malignant neoplasm [place] [id number] ovary Z80.41 [facility] Aug, OBGYN [facility], [place] [id number] [facility] Aug, Family history of OBGYN [facility], malignant neoplasm [place] [id number] ovary Z80.41 and Unspecified ovarian cysts N83.20 [facility] Aug, Unspecified ovarian cysts OBGYN [facility], N83.20 [place] [id number] [facility] Jul, [place]BG[place] [id number] [facility] May, Osteopenia 733.90 [place]BGYN [place], [place] [id number] [facility] May, ROUTINE CONSUMER SAFETY INSPECTOR EXAMINATION OBGYN [facility], V72.31 ; PAP SMEAR W/O CONSUMER SAFETY INSPECTOR [place] [id number] EXAM V76.2 ; SCREEN MALIG NEOP-COLON V76.51 and SCREEN MAMMOGRAM NEC V76.12 [facility] Feb, Ovarian cyst NOS 620.2 OBGYN [place], [place] [id number] [facility] Feb, Postmenopausal bleeding OBGYN [facility], 627.1 [place] [id number] [facility] Jan, Postmenopausal bleeding OBGYN [facility], 627.1 [place] [id number] [facility] Jan, OBG[place] [id number] [facility] [address] Dec, [place] [id number] [facility] Dec, ENDOMETRIAL HYPERPLASIA, OBGYN [facility], UNSPEC. 621.30 [place] [id number] [facility] Dec, ENDOMETRIAL HYPERPLASIA, OBGYN [facility], UNSPEC. 621.30 [place] [id number] [facility] Nov, [place]BG[place] [id number] [facility] Nov, Benign endometrial OBGYN [facility], hyperplasia 621.34 [place] [id number] [facility] Nov, ENDOMETRIAL HYPERPLASIA, OBGYN [facility], UNSPEC. 621.30 [place] [id number] [facility] Nov, Postmenopausal bleeding OBGYN [facility], 627.1 [place] [id number] [facility] Nov, Ovarian cyst NOS 620.2 and OBGYN [facility], ENDOMETRIAL HYPERPLASIA, [place] [id number] UNSPEC. 621.30 [facility] Nov, FM HX OVARY MALIGNANCY OBGYN [facility], V16.41 and ABN FINDINGS- [place] [id number] ORGANS 793.5 [facility] 103 Oct, FM HX OVARY MALIGNANCY OBGYN [facility], V16.41 and FAMILY [place] [id number] HX-BREAST MALIG V16.3 [facility] 103 Oct, FM HX OVARY MALIGNANCY OBGYN [facility], V16.41 [place] [id number] [facility] 103 May, VULVAR LESION 624.9 [place] [id number] [facility] 103 May, VULVAR LESION 624.9 [place] [id number] [facility] 103 Apr, ROUTINE CONSUMER SAFETY INSPECTOR EXAMINATION OBN [facility], V72.31 ; PAP SMEAR W/O CONSUMER SAFETY INSPECTOR [place] [id number] EXAM V76.2 ; SCREEN MALIG NEOP-COLON V76.51 ; SCREEN MAMMOGRAM NEC V76.12 ; FAMILY HX-BREAST MALIG V16.3 ; FM HX OVARY MALIGNANCY V16.41 ; Menopausal symptoms 627.2 and VULVAR LESION 624.9 [facility] 103 Apr, FM HX OVARY MALIGNANCY OBGYN [facility], V16.41 [place] [id number] [facility] Sep, FAMILY HX-BREAST MALIG OBGYN [facility], V16.3 ; FM HX OVARY [place] [id number] MALIGNANCY V16.41 and Menopausal symptoms 627.2 [facility] Aug, [place]BG[place] [id number] [facility] Aug, FAMILY HX-BREAST MALIG OBGYN [facility], V16.3 ; FM HX OVARY [place] [id number] MALIGNANCY V16.41 and Menopausal symptoms 627.2 [facility] Jul, OBG[place], [place] [id number] [facility] Jul, Ovarian cyst NOS 620.2 ; OBGYN [facility], Postmenopausal bleeding [place] [id number] 627.1 ; FAMILY HX-BREAST MALIG V16.3 ; FM HX OVARY MALIGNANCY V16.41 ; FAMILY HX-KIDNEY MALIG V16.51 and HEMATURIA NOS 599.70 [facility] Jul, Ovarian cyst NOS 620.2 [place] [id number] [facility] Jun, [place] [id number] [facility] Jun, Postmenopausal bleeding OBGYN [facility], 627.1 ; Endometrial polyp [place] [id number] 621.0 ; Ovarian cyst NOS 620.2 ; FAMILY HX-BREAST MALIG V16.3 ; FM HX OVARY MALIGNANCY V16.41 ; FAMILY HX-KIDNEY MALIG V16.51 and HEMATURIA NOS 599.70 [facility] [address] Jun, [place] [id number] [facility] Jun, [place], [place] [id number] [facility] 103 Jun, Postmenopausal bleeding OBGYN [facility], 627.1 and Endometrial [place] [id number] polyp 621.0 [facility] May, [place]BG[place] [id number] [facility] May, [place] [id number] [facility] May, Postmenopausal bleeding OBN [facility], 627.1 ; Endometrial polyp [place] [id number] 621.0 ; Ovarian cyst NOS 620.2 ; FAMILY HX-BREAST MALIG V16.3 ; FM HX OVARY MALIGNANCY V16.41 and FAMILY HX-KIDNEY MALIG V16.51 [facility] May, OBG[place], [place] [id number] [facility] May, Postmenopausal bleeding OBGYN [facility], 627.1 and Endometrial [place] [id number] polyp 621.0 [facility] May, Postmenopausal bleeding OBN [facility], 627.1 [place] [id number] [facility] May, Postmenopausal bleeding OBN [facility], 627.1 ; Endometrial polyp [place] [id number] 621.0 and Ovarian cyst NOS 620.2 [facility] May, [facility]coital bleeding 626.7 [facility], ; Postmenopausal bleeding [place] [id number] 627.1 ; Condyloma NOS 078.10 and Ovarian cyst NOS 620.2 [facility] 103 May, Postcoital bleeding 626.7 [facility], ; ABN FINDINGS- [place] [id number] 793.5 and Ovarian cyst NOS 620.2 [facility] 103 Apr, Postcoital bleeding 626.7 [facility], and Dyspareunia 625.0 [place] [id number] IMMUNIZATIONS No Known Immunizations SOCIAL HISTORY Never Assessed REASON FOR REFERRAL FUNCTIONAL STATUS PLAN OF CARE Activity Details Follow Up f/u end of next week Reason: VITAL SIGNS Height 62.25 in 2019-10-12 Weight 169 lbs 2019-10-12 BMI 30.66 kg/m2 2019-10-12 Blood pressure systolic 148 mm Hg 2019-10-12 Blood pressure diastolic 86 mm Hg 2019-10-12 MEDICATIONS Medication Instructions Dosage Frequency Start End Duration Status Date Date Januvia 50 mg orally once a 1 tab(s) 24h 30 day(s) Active day losartan 25 mg orally once a 1 tab(s) 24h 30 day(s) Active day Flonase nasal 2 spray 24h Active spray 50mcg per each spray nostril Cymbalta 30 mg orally qd 1 cap(s) 24h 30 day(s) Active Vitamin D3 1000 orally once a 2 tab(s) 24h Active intl units day rosuvastatin 20 orally once a 1 cap(s) 24h Active mg day loratadine 10 mg orally once a 1 tab(s) 24h Active day PROCEDURES Procedure Date Ordered Result Body Site COLPO VULVA W/BX Oct 12, 2019 RESULTS Name Result Date Reference Range Gynecologic Biopsy 2019-10-12 Gynecologic Biopsy See Results REASON FOR VISIT Vulvar Colpo Insurance Providers [facility] Member Patient Patient Patient Patient Patient Subscriber Subscriber Subscriber Group Insurance Plan Plan Plan Plan ID Relationship Address Phone Name Date of ID Name Date of No Type Insurance Insurance Insurance Coverage to Subscriber Address Phone Name Dates [place] [phone] Yohana Lal [id number] Blue [id number] 89 [address] 0 Cross/[place] Cross/Blue Shield [id number] Shield [place] [phone] Yohana Lal [id number] Blue 28157 89 Blue [place] 0 [place] Cross/[place] [address] Shield MEDICAL (GENERAL) HISTORY Type Description Date [...]
--- OUTSIDE RECORDS SUMMARY | 2019-12-05 07:47 | XMS REPORT ---
:1960 Author Organization [facility] Address [address] [place] [address] Care Team Providers Name Role Phone Yenifer Schneider Unavailable Unavailable PROBLEMS Type Condition ICD9-CM [id number] Onset Condition SNOMED Code Code Code Dates Status Problem Unspecified ovarian N83.20 Active 85037677 cysts Problem Postmenopausal N95.0 Active 33945949 bleeding Problem Dyspareunia N94.1 Active 15271978 Problem Family history of Z80.3 Active 691760852 malignant neoplasm of breast Problem Unspecified lump in N63 Active 97311461 breast Problem Leiomyoma of D25.9 Active 23862252 uterus, unspecified Problem Mastodynia N64.4 Active 00035129 Problem Noninflammatory N90.9 Active 165040497 disorder of vulva and perineum, unspecified Problem Breast Mass 611.72 Active 41816598 Problem 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 Problem Family history of Z80.51 Active 534409738 malignant neoplasm of kidney Problem 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 Problem Unspecified lump in N63.21 Active [id number] the left breast, upper outer quadrant Problem Unspecified lump in N63.12 Active 409422518 the right breast, upper inner quadrant Problem Unspecified urinary R32 Active 687574010 incontinence ALLERGIES No Information ENCOUNTERS Encounter Location Date Diagnosis [facility] 103 Sep, [place] [id number] [facility] 103 Sep, [place] [id number] [facility] 103 Jan, [place] [id number] [facility] 103 Oct, Anogenital (venereal ) OBGYN [facility], warts A63.0 [place] [id number] [facility] 103 Oct, Noninflammatory disorder OBGYN [facility], of vulva and perineum, [place] [id number] unspecified N90.9 [facility] 103 Oct, OBG[place], [place] [id number] [facility] 103 Oct, OBG[place] [id number] [facility] 103 Sep, [facility] [place] [id number] (general) (routine) with abnormal findings Z01.411 ; Encounter for screening mammogram for malignant neoplasm of breast Z12.31 ; Encounter for screening for malignant neoplasm of colon Z12.11 ; Leiomyoma of uterus, unspecified D25.9 and Noninflammatory disorder of vulva and perineum, unspecified N90.9 [facility] 103 Sep, Leiomyoma of uterus, OBGYN [facility], unspecified D25.9 and [place] [id number] Family history of malignant neoplasm of ovary Z80.41 [facility] 103 Sep, [place]BG[place] [id number] [facility] 103 Sep, [place] [id number] [facility] 103 Sep, [facility], gynecological examination [place] [id number] (general) (routine) without abnormal findings Z01.419 ; [...] the left breast, upper outer quadrant N63.21 [facility] Aug, [place] [id number] [facility] 103 Sep, [place] [id number] [facility] 103 Sep, [place] [id number] [facility] 103 Sep, Encounter for [facility], gynecological examination [place] [id number] (general) (routine) with abnormal findings Z01.411 ; [...] unspecified quadrant N63.20 and Postmenopausal bleeding N95.0 [facility] 103 Sep, Family history of [facility], [place] [id number] ovary Z80.41 and Leiomyoma of uterus, unspecified D25.9 [facility] 103 Jun, [facility] [place] [id number] ovary Z80.41 and Leiomyoma of uterus, unspecified D25.9 [facility] 103 Jun, Family history of [facility], malignant [place]oplasm [place] [id number] ovary Z80.41 and Leiomyoma of uterus, unspecified D25.9 [facility] 103 Apr, [place] [id number] [facility] 103 March, [place] [id number] [facility] 103 March, Family history of [facility], [place]oplasm [place] [id number] ovary Z80.41 ; Family history of malignant neoplasm of breast Z80.3 ; Mastodynia N64.4 ; Diffuse cystic mastopathy of left breast N60.12 and Leiomyoma of uterus, unspecified D25.9 [facility] 103 March, Family history of [facility], malignant [place]oplasm [place] [address] ovary Z80.41 ; Unspecified ovarian cysts N83.20 and Leiomyoma of uterus, unspecified D25.9 [facility] 103 Feb, Family history of [facility], malignant [place]oplasm [place] [id number] ovary Z80.41 ; Family history of malignant neoplasm of breast Z80.3 and Unspecified lump in breast N63 [facility] 103 Jan, Postmenopausal bleeding [facility], N95.0 ; Dyspareunia N94.1 [place] [id number] ; Family history of malignant neoplasm of ovary Z80.41 ; Family history of malignant neoplasm of breast Z80.3 ; Unspecified lump in breast N63 and Family history of malignant neoplasm of kidney Z80.51 [facility] 103 Dec, [place] [id number] [facility] 103 Oct, Postmenopausal bleeding [facility], N95.0 ; Dyspareunia N94.1 [place] [id number] ; Family history of malignant neoplasm of ovary Z80.41 ; Family history of malignant neoplasm of breast Z80.3 ; Unspecified lump in breast N63 and Family history of malignant neoplasm of kidney Z80.51 [facility] 103 Sep, [place] [id number] [facility] Sep, Dysuria R30.0 [place] [id number] [facility] 103 Aug, Encounter for [facility], gynecological examination [place] [id number] (general) (routine) with abnormal findings Z01.411 ; Encounter for screening mammogram for malignant neoplasm of breast Z12.31 ; Encounter for screening for malignant neoplasm of colon Z12.11 ; Family history of malignant neoplasm of ovary Z80.41 ; Family history of malignant neoplasm of breast Z80.3 and Unspecified lump in breast N63 [facility] 103 Aug, Family history of [facility], malignant [place]oplasm [place] [id number] ovary Z80.41 [facility] 103 Jul, Urinary tract infection, [facility], site not specified N39.0 ; [place] [id number] Breast Mass 611.72 ; Family history of malignant neoplasm of ovary Z80.41 and Family history of malignant neoplasm of breast Z80.3 [facility] 103 Jul, Postmenopausal bleeding [facility], N95.0 ; Dyspareunia N94.1 [place] [id number] ; Breast Mass 611.72 ; Family history of malignant neoplasm of ovary Z80.41 ; Family history of malignant neoplasm of breast Z80.3 ; Family history of malignant neoplasm of kidney Z80.51 and Biliuria R82.2 [facility] [address] Jun, [place] [id number] [facility] 103 Jun, Postmenopausal bleeding [facility], N95.0 [place] [id number] [facility] 103 May, [place] [id number] [facility] 103 May, Postmenopausal bleeding [facility], N95.0 [place] [id number] [facility] 103 May, Postmenopausal bleeding OBGYN [facility], N95.0 and Dyspareunia [place] [id number] N94.1 [facility] 103 May, OBG[facility] [id number] [facility] 103 Apr, Encounter for screening OBGYN [facility], mammogram for malignant [place] [id number] neoplasm of breast Z12.31 [place] [address] [facility] Apr, [address]yspareunia N94.[address] [place], Postmenopausal bleeding [place] [id number] N95.0 [facility] 103 Feb, Family history of OBGYN [facility], malignant neoplasm [place] [address] ovary Z80.41 ; Family history of malignant neoplasm of breast Z80.3 and Encounter for screening mammogram for malignant neoplasm of breast Z12.31 [facility] 103 Feb, Family history of OBGYN [facility], malignant neoplasm [place] [id number] ovary Z80.41 [facility] 103 Aug, [place] [id number] [facility] 103 Aug, Family history of OBGYN [facility], malignant neoplasm [place] [id number] ovary Z80.41 and Unspecified ovarian cysts N83.20 [facility] 103 Aug, Unspecified ovarian cysts OBGYN [facility], N83.20 [place] [id number] [facility] 103 Jul, OBG[place], [place] [id number] [facility] 103 May, Osteopenia 733.90 [place] [id number] [facility] 103 May, ROUTINE [employer] EXAMINATION OBGYN [facility], V72.31 ; PAP SMEAR W/O [employer] [place] [id number] EXAM V76.2 ; SCREEN MALIG NEOP-COLON V76.51 and SCREEN MAMMOGRAM NEC V76.12 [facility] 103 Feb, Ovarian cyst NOS 620.2 [place] [id number] [facility] 103 Feb, Postmenopausal bleeding OBGYN [facility], 627.1 [place] [id number] [facility] 103 Jan, Postmenopausal bleeding OBGYN [facility], 627.1 [place] [id number] [facility] 103 Jan, O[place] [id number] [place] [address] Dec, [place], [place] [id number] [facility] 103 Dec, ENDOMETRIAL HYPERPLASIA, OBGYN [facility], UNSPEC. 621.30 [place] [id number] [facility] 103 Dec, ENDOMETRIAL HYPERPLASIA, OBGYN [facility], UNSPEC. 621.30 [place] [id number] [facility] 103 Nov, OBGYN [facility] [id number] [facility] 103 Nov, Benign endometrial OBGYN [facility], hyperplasia 621.34 [place] [id number] [facility] 103 Nov, ENDOMETRIAL HYPERPLASIA, OBGYN [facility], UNSPEC. 621.30 [place] [id number] [facility] 103 Nov, Postmenopausal bleeding OBGYN [facility], 627.1 [place] [id number] [facility] 103 Nov, Ovarian cyst NOS 620.2 and OBGYN [facility], ENDOMETRIAL HYPERPLASIA, [place] [id number] UNSPEC. 621.30 [facility] 103 Nov, FM HX OVARY MALIGNANCY OBGYN [facility], V16.41 and ABN FINDINGS- [place] [id number] [place] 793.5 [facility] 103 Oct, FM HX OVARY MALIGNANCY OBGYN [facility], V16.41 and FAMILY [place] [id number] HX-BREAST MALIG V16.3 [facility] 103 Oct, FM HX OVARY MALIGNANCY OBGYN [facility], V16.41 [place] [id number] [facility] 103 May, VULVAR LESION 624.9 [place] [id number] [facility] 103 May, VULVAR LESION 624.9 [place], [place] [id number] [facility] 103 Apr, ROUTINE [employer] EXAMINATION OBGYN [facility], V72.31 ; PAP SMEAR W/O [employer] [place] [id number] EXAM V76.2 ; SCREEN MALIG NEOP-COLON V76.51 ; SCREEN MAMMOGRAM NEC V76.12 ; FAMILY HX-BREAST MALIG V16.3 ; FM HX OVARY MALIGNANCY V16.41 ; Menopausal symptoms 627.2 and VULVAR LESION 624.9 [facility] 103 Apr, FM HX OVARY MALIGNANCY OBGYN [facility], V16.41 [place] [id number] [facility] 103 Sep, FAMILY HX-BREAST MALIG OBGYN [facility], V16.3 ; FM HX OVARY [place] [id number] MALIGNANCY V16.41 and Menopausal symptoms 627.2 [facility] 103 Aug, [place] [id number] [facility] 103 Aug, FAMILY HX-BREAST MALIG OBGYN [facility], V16.3 ; FM HX OVARY [place] [id number] MALIGNANCY V16.41 and Menopausal symptoms 627.2 [facility] 103 Jul, [place] [id number] [facility] 103 Jul, Ovarian cyst NOS 620.2 ; OBGYN [facility], Postmenopausal bleeding [place] [id number] 627.1 ; FAMILY HX-BREAST MALIG V16.3 ; FM HX OVARY MALIGNANCY V16.41 ; FAMILY HX-KIDNEY MALIG V16.51 and HEMATURIA NOS 599.70 [facility] 103 Jul, Ovarian cyst NOS 620.2 [place] [id number] [facility] 103 Jun, [place], [place] [id number] [facility] 103 Jun, Postmenopausal bleeding OBGYN [facility], 627.1 ; Endometrial polyp [place] [id number] 621.0 ; Ovarian cyst NOS 620.2 ; FAMILY HX-BREAST MALIG V16.3 ; FM HX OVARY MALIGNANCY V16.41 ; FAMILY HX-KIDNEY MALIG V16.51 and HEMATURIA NOS 599.[address] [place] [address] Jun, [place] [id number] [facility] 103 Jun, [place] [id number] [facility] 103 Jun, Postmenopausal bleeding OBGYN [facility], 627.1 and Endometrial [place] [id number] polyp 621.0 [facility] 103 May, [place] [id number] [facility] 103 May, O[place], [place] [id number] [facility] 103 May, Postmenopausal bleeding OBGYN [facility], 627.1 ; Endometrial polyp [place] [id number] 621.0 ; Ovarian cyst NOS 620.2 ; FAMILY HX-BREAST MALIG V16.3 ; FM HX OVARY MALIGNANCY V16.41 and FAMILY HX-KIDNEY MALIG V16.51 [facility] 103 May, OBGYN [facility], [place] [id number] [facility] 103 May, Postmenopausal bleeding OBGYN [facility], 627.1 and Endometrial [place] [id number] polyp 621.0 [facility] 103 May, Postmenopausal bleeding OBGYN [facility], 627.1 [place] [id number] [facility] 103 May, Postmenopausal bleeding OBGYN [facility], 627.1 ; Endometrial polyp [place] [id number] 621.0 and Ovarian cyst NOS 620.2 [facility] 103 May, Postcoital bleeding 626.7 OBGYN [facility], ; Postmenopausal bleeding [place] [id number] 627.1 ; Condyloma NOS 078.10 and Ovarian cyst NOS 620.2 [facility] 103 May, Postcoital bleeding 626.7 OBN [facility], ; ABN FINDINGS- [place] [id number] 793.5 and Ovarian cyst NOS 620.2 [facility] 103 Apr, Postcoital bleeding 626.7 OBGYN [facility], and Dyspareunia 625.0 [place] [id number] IMMUNIZATIONS No Known Immunizations SOCIAL HISTORY Never Assessed REASON FOR REFERRAL FUNCTIONAL STATUS PLAN OF CARE VITAL SIGNS MEDICATIONS Unknown Medications PROCEDURES No Known procedures RESULTS No Results REASON FOR VISIT annual 09/2019 Insurance Providers [facility] Member Patient Patient Patient Patient Patient Subscriber Subscriber Subscriber Group Insurance Plan Plan Plan Plan ID Relationship Address Phone Name Date of ID Name Date of No Type Insurance Insurance Insurance Coverage to Subscriber Address Phone Name Dates Yohana MICA [place] [phone] Yohana Lal [id number] Blue [id number] [address] 0 Cross/Blue [place] Cross/Blue Shield [id number] Shield Yohana [phone] Yohana Lal [id number] Blue [id number] 89 [address] 0 Cross/Blue [place] Cross/Blue Shield [id number] Shield MEDICAL (GENERAL) HISTORY Type Description Date [...]
--- OUTSIDE RECORDS SUMMARY | 2019-12-05 07:47 | XMS REPORT ---
:1960 Author Name Trina Kirkpatrick Address [address] [place] [address] Care Team Providers Name Role Phone Trina Kirkpatrick Unavailable Unavailable PROBLEMS Type Condition ICD9-CM CXQ19-OO Onset Condition SNOMED Code Code Code Dates Status Problem Unspecified ovarian N83.20 Active 91486321 cysts Problem Postmenopausal N95.0 Active 30673326 bleeding Problem Dyspareunia N94.1 Active 84645057 Problem Family history of Z80.3 Active 724899247 malignant neoplasm of breast Problem Unspecified lump in N63 Active 37064189 breast Problem Leiomyoma of D25.9 Active 47406603 uterus, unspecified Problem Mastodynia N64.4 Active 07635164 Problem Noninflammatory N90.9 Active 839912745 disorder of vulva and perineum, unspecified Problem Breast Mass 611.72 Active 53391210 Problem 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 Problem Family history of Z80.51 Active 047391173 malignant neoplasm of kidney Problem 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 Problem Unspecified lump in N63.21 Active [id number] the left breast, upper outer quadrant Problem Unspecified lump in N63.12 Active 187593221 the right breast, upper inner quadrant Problem Unspecified urinary R32 Active 856640313 incontinence ALLERGIES Substance Reaction Event Type Date Status clindamycin shakes Drug Allergy Oct, Active Flagyl nausea Drug Allergy Oct, Active Percocet sweating Drug Allergy Oct, Active meloxicam itchy Drug Allergy Oct, Active all cillins itching, rash Drug Allergy Oct, Active Sulfa GI upset Drug Allergy Oct, Active iodine diarrhea Drug Allergy Oct, Active ENCOUNTERS Encounter Location Date Diagnosis [facility] Sep, [place] [id number] [facility] Sep, [place] [id number] [facility] Jan, [place] [id number] [facility] Oct, Anogenital (venereal ) OBGYN [facility], warts A63.0 [place] [id number] [facility] Oct, [facility] of vulva and perineum, [place] [id number] unspecified N90.9 [facility] Oct, OBG[place], [place] [id number] [facility] Oct, [place] [id number] [facility] Sep, [facility], gynecological examination [place] [id number] (general) (routine) with abnormal findings Z01.411 ; Encounter for screening mammogram for malignant neoplasm of breast Z12.31 ; Encounter for screening for malignant neoplasm of colon Z12.11 ; Leiomyoma of uterus, unspecified D25.9 and Noninflammatory disorder of vulva and perineum, unspecified N90.9 [facility] 103 Sep, Leiomyoma of uterus, OBGYN [facility], unspecified D25.9 and [place] [id number] Family history of malignant neoplasm of ovary Z80.41 [facility] 10 Sep, 2018 OBG[place] [id number] [facility] 08 Sep, 2018 [place] [id number] [facility] Sep, Encounter for [facility] gynecological examination [place] [id number] (general) (routine) without abnormal findings Z01.419 ; [...] the left breast, upper outer quadrant N63.21 [facility] Aug, [place] [id number] [facility] Sep, [place] [id number] [facility] Sep, [place] [id number] [facility] Sep, Encounter for [facility] gynecological examination [place] [id number] (general) (routine) with abnormal findings Z01.411 ; [...] unspecified quadrant N63.20 and Postmenopausal bleeding N95.0 [facility] Sep, Family history of [facility], malignant neoplasm [place] [id number] ovary Z80.41 and Leiomyoma of uterus, unspecified D25.9 [facility] Jun, Family history of [facility], malignant neoplasm [place] [id number] ovary Z80.41 and Leiomyoma of uterus, unspecified D25.9 [facility] Jun, Family history of OBGYN [facility], malignant [place]oplasm [place] [id number] ovary Z80.41 and Leiomyoma of uterus, unspecified D25.9 [facility] Apr, OBGYN [facility], [place] [id number] [facility] March, [place] [id number] [facility] March, Family history of OBGYN [facility], malignant [place]oplasm [place] [id number] ovary Z80.41 ; Family history of malignant neoplasm of breast Z80.3 ; Mastodynia N64.4 ; Diffuse cystic mastopathy of left breast N60.12 and Leiomyoma of uterus, unspecified D25.9 [facility] March, Family history of OBGYN [facility], malignant [place]oplasm [place] [id number] ovary Z80.41 ; Unspecified ovarian cysts N83.20 and Leiomyoma of uterus, unspecified D25.9 [facility] Feb, Family history of OBGYN [facility], malignant [place]oplasm [place] [id number] ovary Z80.41 ; Family history of malignant neoplasm of breast Z80.3 and Unspecified lump in breast N63 [facility] Jan, Postmenopausal bleeding OBGYN [facility], N95.0 ; Dyspareunia N94.1 [place] [id number] ; Family history of malignant neoplasm of ovary Z80.41 ; Family history of malignant neoplasm of breast Z80.3 ; Unspecified lump in breast N63 and Family history of malignant neoplasm of kidney Z80.51 [facility] Dec, OBGYN [facility], [place] [id number] [facility] Oct, Postmenopausal bleeding OBGYN [facility], N95.0 ; Dyspareunia N94.1 [place] [id number] ; Family history of malignant neoplasm of ovary Z80.41 ; Family history of malignant neoplasm of breast Z80.3 ; Unspecified lump in breast N63 and Family history of malignant neoplasm of kidney Z80.51 [facility] 103 Sep, [place] [id number] [facility] 103 Sep, Dysuria R30.0 [place] [id number] [facility] 103 Aug, Encounter for [facility] gynecological examination [place] [id number] (general) (routine) with abnormal findings Z01.411 ; Encounter for screening mammogram for malignant neoplasm of breast Z12.31 ; Encounter for screening for malignant neoplasm of colon Z12.11 ; Family history of malignant neoplasm of ovary Z80.41 ; Family history of malignant neoplasm of breast Z80.3 and Unspecified lump in breast N63 [facility] 103 Aug, Family history of [facility], malignant [place]oplasm [place] [id number] ovary Z80.41 [facility] 103 Jul, Urinary tract infection, [facility], site not specified N39.0 ; [place] [id number] Breast Mass 611.72 ; Family history of malignant neoplasm of ovary Z80.41 and Family history of malignant neoplasm of breast Z80.3 [facility] 103 Jul, [facility], N95.0 ; Dyspareunia N94.1 [place] [id number] ; Breast Mass 611.72 ; Family history of malignant neoplasm of ovary Z80.41 ; Family history of malignant neoplasm of breast Z80.3 ; Family history of malignant neoplasm of kidney Z80.51 and Biliuria R82.2 [facility] [address] Jun, Medical [place] [id number] [facility] 103 Jun, Postmenopausal bleeding OBGYN [facility], N95.0 [place] [id number] [facility] May, OBGYN [facility], [place] [id number] [facility] 103 May, Postmenopausal bleeding OBGYN [facility], N95.0 [place] [id number] [facility] 103 May, Postmenopausal bleeding OBGYN [facility], N95.0 and [place]are[place]ia [place] [id number] N94.1 [facility] May, OBGYN [facility], [place] [id number] [facility] Apr, Encounter for screening OBN [facility], mammogram for malignant [place] [id number] neoplasm of breast Z12.[address] Apr, [address]yspareunia N94.[address] [place], Postmenopausal bleeding [place] [id number] N95.0 [facility] Feb, Family history of OBGYN [facility], malignant neoplasm [place] [id number] ovary Z80.41 ; Family history of malignant neoplasm of breast Z80.3 and Encounter for screening mammogram for malignant neoplasm of breast Z12.31 [facility] Feb, Family history of OBGYN [facility], [place]oplasm [place] [id number] ovary Z80.41 [facility] Aug, OBGYN [facility], [place] [id number] [facility] 103 Aug, Family history of OBGYN [facility], malignant neoplasm [place] [id number] ovary Z80.41 and Unspecified ovarian cysts N83.20 [facility] 103 Aug, Unspecified ovarian cysts OBGYN [facility], N83.20 [place] [id number] [facility] Jul, [place] [id number] [facility] May, Osteopenia 733.90 OBGYN [place], [place] [id number] [facility] May, ROUTINE WELDER METAL FAB EXAMINATION OBGYN [facility], V72.31 ; PAP SMEAR W/O WELDER METAL FAB [place] [id number] EXAM V76.2 ; SCREEN MALIG NEOP-COLON V76.51 and SCREEN MAMMOGRAM NEC V76.12 [facility] Feb, Ovarian cyst NOS 620.2 OBGYN [place] [id number] [facility] Feb, Postmenopausal bleeding OBGYN [facility], 627.1 [place] [id number] [facility] Jan, Postmenopausal bleeding OBGYN [facility], 627.1 [place] [id number] [facility] Jan, OBG[place] [id number] [facility] [address] Dec, [place] [id number] [facility] Dec, ENDOMETRIAL HYPERPLASIA, OBGYN [facility], UNSPEC. 621.30 [place] [id number] [facility] 103 Dec, ENDOMETRIAL HYPERPLASIA, OBGYN [facility], UNSPEC. 621.30 [place] [id number] [facility] Nov, [place] [id number] [facility] Nov, Benign endometrial OBGYN [facility], hyperplasia 621.34 [place] [id number] [facility] 103 Nov, ENDOMETRIAL HYPERPLASIA, OBGYN [facility], UNSPEC. 621.30 [place] [id number] [facility] Nov, Postmenopausal bleeding OBGYN [facility], 627.1 [place] [id number] [facility] Nov, Ovarian cyst NOS 620.2 and OBGYN [facility], ENDOMETRIAL HYPERPLASIA, [place] [id number] UNSPEC. 621.30 [facility] Nov, FM HX OVARY MALIGNANCY OBGYN [facility], V16.41 and ABN FINDINGS- [place] [id number] ORGANS 793.5 [facility] 103 Oct, FM HX OVARY MALIGNANCY OBGYN [facility], V16.41 and FAMILY [place] [id number] HX-BREAST MALIG V16.3 [facility] 103 Oct, FM HX OVARY MALIGNANCY OBGYN [facility], V16.41 [place] [id number] [facility] 103 May, VULVAR LESION 624.9 OBN [place] [id number] [facility] 103 May, VULVAR LESION 624.9 [place] [id number] [facility] 103 Apr, ROUTINE WELDER METAL FAB EXAMINATION OBN [facility], V72.31 ; PAP SMEAR W/O WELDER METAL FAB [place] [id number] EXAM V76.2 ; SCREEN MALIG NEOP-COLON V76.51 ; SCREEN MAMMOGRAM NEC V76.12 ; FAMILY HX-BREAST MALIG V16.3 ; FM HX OVARY MALIGNANCY V16.41 ; Menopausal symptoms 627.2 and VULVAR LESION 624.9 [facility] 103 Apr, FM HX OVARY MALIGNANCY OBGYN [facility], V16.41 [place] [id number] [facility] Sep, FAMILY HX-BREAST MALIG OBGYN [facility], V16.3 ; FM HX OVARY [place] [id number] MALIGNANCY V16.41 and Menopausal symptoms 627.2 [facility] Aug, O[place] [id number] [facility] 103 Aug, FAMILY HX-BREAST MALIG OBGYN [facility], V16.3 ; FM HX OVARY [place] [id number] MALIGNANCY V16.41 and Menopausal symptoms 627.2 [facility] Jul, OBG[place], [place] [id number] [facility] 103 Jul, Ovarian cyst NOS 620.2 ; OBGYN [facility], Postmenopausal bleeding [place] [id number] 627.1 ; FAMILY HX-BREAST MALIG V16.3 ; FM HX OVARY MALIGNANCY V16.41 ; FAMILY HX-KIDNEY MALIG V16.51 and HEMATURIA NOS 599.70 [facility] 103 Jul, Ovarian cyst NOS 620.2 OBG[place] [id number] [facility] Jun, [place], [place] [id number] [facility] 103 Jun, Postmenopausal bleeding OBGYN [facility], 627.1 ; Endometrial polyp [place] [id number] 621.0 ; Ovarian cyst NOS 620.2 ; FAMILY HX-BREAST MALIG V16.3 ; FM HX OVARY MALIGNANCY V16.41 ; FAMILY HX-KIDNEY MALIG V16.51 and HEMATURIA NOS 599.70 [facility] [address] Jun, [place] [id number] [facility] Jun, OBG[place] [id number] [facility] 103 Jun, Postmenopausal bleeding OBGYN [facility], 627.1 and Endometrial [place] [id number] polyp 621.0 [facility] May, [place] [id number] [facility] May, [place], [place] [id number] [facility] May, Postmenopausal bleeding OBN [facility], 627.1 ; Endometrial polyp [place] [id number] 621.0 ; Ovarian cyst NOS 620.2 ; FAMILY HX-BREAST MALIG V16.3 ; FM HX OVARY MALIGNANCY V16.41 and FAMILY HX-KIDNEY MALIG V16.51 [facility] May, OBG[place], [place] [id number] [facility] May, Postmenopausal bleeding OBGYN [facility], 627.1 and Endometrial [place] [id number] polyp 621.0 [facility] May, Postmenopausal bleeding OBN [facility], 627.1 [place] [id number] [facility] May, Postmenopausal bleeding OBN [facility], 627.1 ; Endometrial polyp [place] [id number] 621.0 and Ovarian cyst NOS 620.2 [facility] 103 May, Postcoital bleeding 626.7 [facility], ; Postmenopausal bleeding [place] [id number] 627.1 ; Condyloma NOS 078.10 and Ovarian cyst NOS 620.2 [facility] May, Postcoital bleeding 626.7 [facility], ; ABN FINDINGS- [place] [id number] 793.5 and Ovarian cyst NOS 620.2 [facility] 103 Apr, Postcoital bleeding 626.7 [facility], and Dyspareunia 625.0 [place] [id number] IMMUNIZATIONS No Known Immunizations SOCIAL HISTORY Never Assessed REASON FOR REFERRAL FUNCTIONAL STATUS PLAN OF CARE Activity Details Follow Up vulvar check 3 mos Reason: VITAL SIGNS Height 62.25 in 2019-10-21 Weight 166 lbs 2019-10-21 BMI 30.12 kg/m2 2019-10-21 Blood pressure systolic 132 mm Hg 2019-10-21 Blood pressure diastolic 80 mm Hg 2019-10-21 MEDICATIONS Medication Instructions Dosage Frequency Start End Duration Status Date Date losartan 25 mg orally once a 1 tab(s) 24h 30 day(s) Active day Vitamin D3 1000 orally once a 2 tab(s) 24h Active intl units day Cymbalta 30 mg orally qd 1 cap(s) 24h 30 day(s) Active Flonase nasal 2 spray 24h Active spray 50mcg per each spray nostril rosuvastatin 20 orally once a 1 cap(s) 24h Active mg day loratadine 10 mg orally once a 1 tab(s) 24h Active day Januvia 50 mg orally once a 1 tab(s) 24h 30 day(s) Active day PROCEDURES No Known procedures RESULTS No Results REASON FOR VISIT [employer]po FU Insurance Providers [facility] Member Patient Patient Patient Patient Patient Subscriber Subscriber Subscriber Group Insurance Plan Plan Plan Plan ID Relationship Address Phone Name Date of ID Name Date of No Type Insurance Insurance Insurance Coverage to Subscriber Address Phone Name Dates [place] [phone] Yohana Lal [id number] Blue [id number] [address] 0 Cross/Blue [place] Cross/Blue Shield [id number] Shield [place] [phone] Yohana Lal [id number] Blue [id number] 89 Blue [address] 0 Cross/Blue [place] Cross/Blue Shield [id number] Shield MEDICAL (GENERAL) HISTORY Type Description Date [...]
[2019-12-05 07:52] VITALS: BP 138/96
--- NOTE | 2019-12-05 08:18 | UC ---
Respiratory Complaint HPI - HPI Summary HPI Summary: Pt presents with c/o dry, hacking, cough, X 1 week Pt denies fever, chills, body aches. Pt is an everyday heavy smoker with hx of allergy and exercise induced asthma - History of Current Complaint Chief Complaint: UCGeneralIllness Stated Complaint: CHEST CONGESTION, COUGH Time Seen by Provider: 12/05/19 08:04 Hx Obtained From: Patient ?: No Onset/Duration: Gradual Onset, Lasting Weeks - 1, Still Present Timing: Intermittent Episodes Severity Initially: Mild Severity Currently: Mild Pain Intensity: 0 Character: Cough: Nonproductive Aggravating Factors: Allergens, Exertion, Deep Breaths, Recumbent Position Alleviating Factors: Nothing Associated Signs And Symptoms: Positive: Negative Related History: Seasonal Allergies - Risk Factors Pulmonary Embolism Risk Factors: Smoking Cardiac Risk Factors: Smoking Pseudomonas Risk Factors: Negative Tuberculosis Risk Factors: Smoking - Allergies/Home Medications Allergies/Adverse Reactions: Allergies Allergy/AdvReac Type Severity Reaction Status Date / Time amoxicillin [From Augmentin] Allergy Intermediate Rash Verified 12/05/19 07:52 clavulanic acid Allergy Intermediate Rash Verified 12/05/19 07:52 [From Augmentin] Penicillins Allergy Intermediate Rash Verified 12/05/19 07:52 acetaminophen [From Percocet] Allergy Vomiting Verified 12/05/19 07:52 iodine Allergy Diarrhea Verified 12/05/19 07:52 clindamycin AdvReac shaking Verified 12/05/19 07:52 meloxicam AdvReac Itching Verified 12/05/19 07:52 metronidazole [From Flagyl] AdvReac GI Verified 12/05/19 07:52 oxycodone AdvReac severe Verified 12/05/19 07:52 sweating Sulfa (Sulfonamide AdvReac Diarrhea Verified 12/05/19 07:52 Antibiotics) Home Medications: Home Medications Rosuvastatin (NF) [Crestor (NF)] 20 mg PO 1700 12/05/19 [History Confirmed 12/05] Sitagliptin Phosphate [Januvia] 50 mg PO DAILY 12/05/19 [History Confirmed 12/05] PMH/Surg Hx/FS Hx/Imm Hx Previously Healthy: Yes Cardiovascular History: Cardiac Disease, Hypertension Respiratory History: Asthma - Surgical History Surgical History: Yes Surgery Procedure, Year, and Place: D&C-2013. RIGHT THUMB ARTHROPLASTY. LEFT ELBOW 2007. 2011-DECOMPRESSION - Family History Known Family History: Positive: None - Social History Occupation: Unemployed Lives: With Family Alcohol Use: Rare Substance Use Type: None Smoking Status (MU): Heavy Every Day Tobacco Smoker Type: Cigarettes Amount Used/How Often: 1/2 PPD X 10 YEARS Length of Time of Smoking/Using Tobacco: 15 YRS Have You Smoked in the Last Year: Yes - Immunization History Vaccination Up to Date: Yes Review of Systems All Other Systems Reviewed And Are Negative: Yes Constitutional: Positive: Fatigue Skin: Positive: Negative Eyes: Positive: Negative ENT: Positive: Negative Respiratory: Positive: Shortness Of Breath - with exertion, Cough Cardiovascular: Positive: Negative Gastrointestinal: Positive: Negative Genitourinary: Positive: Negative Motor: Positive: Negative Neurovascular: Positive: Negative Musculoskeletal: Positive: Negative Neurological: Positive: Negative Psychological: Positive: Negative Is Patient Immunocompromised?: No Physical Exam Triage Information Reviewed: Yes Appearance: Well-Appearing Vital Signs: Initial Vital Signs Temp 98.7 F 12/05/19 07:48 Pulse 94 12/05/19 07:48 Resp 14 12/05/19 07:48 BP 138/96 12/05/19 07:48 Pulse Ox 98 12/05/19 07:48 Vital Signs Reviewed: Yes Eye Exam: Normal ENT: Positive: Nasal congestion Dental Exam: Normal Neck exam: Normal Respiratory Exam: Normal Cardiovascular Exam: Normal Musculoskeletal Exam: Normal Neurological Exam: Normal Psychological Exam: Normal Skin Exam: Normal Respiratory Course/Dx - Differential Dx/Diagnosis Differential Diagnosis/HQI/PQRI: Bronchitis, Influenza Provider Diagnosis: Bronchitis Discharge ED - Sign-Out/Discharge Documenting (check all that apply): Patient Departure All imaging exams completed and their final reports reviewed: No Studies - Discharge Plan Condition: Stable Disposition: HOME Prescriptions: Albuterol HFA INHALER* [Ventolin HFA Inhaler*] 1 - 2 puff INH Q4H PRN #1 mdi PRN Reason: Sob/Wheezing Benzonatate CAP* [Tessalon 100 MG CAP*] 200 mg PO Q8H PRN #30 cap PRN Reason: Cough predniSONE [Prednisone 20 MG TAB] 60 mg PO DAILY #18 tablet Patient Education Materials: Acute Bronchitis (ED) Referrals: Kendall Mccain MD [Primary Care Provider] - If Needed - Billing Disposition and Condition Condition: STABLE Disposition: Home - Attestation Statements Provider Attestation: This patient was not seen by me. I was available for consult. chart reviewed. CODY
== END 2019-12-05 08:29 | disposition home or self-care (01) ==
LOC: UCCORT 07:36
DX: J45.909 Unspecified asthma, uncomplicated (principal); R53.83 Other fatigue; I10 Essential (primary) hypertension; F17.210 Nicotine dependence, cigarettes, uncomplicated; Z88.0 Allergy status to penicillin; Z88.1 Allergy status to other antibiotic agents; Z88.2 Allergy status to sulfonamides; Z88.5 Allergy status to narcotic agent; Z88.8 Allergy status to other drugs, medicaments and biological substances
CPT/HCPCS: 99212; G0463